=== PATIENT | female | born 1965 | race African-American/Black ===

== ENCOUNTER 2022-11-01 09:39 | Outpatient (REF) | payer OTHER, SELFPAY ==
[2022-11-01 11:17] LABS: MANUAL DIFF FLAG NO
[2022-11-01 11:39] LABS: Basophils Percent Auto 0.5 % (0-2); Eosinophils Absolute Auto 0.2 X10*3/uL (0.0-0.4); Eosinophils Percent Auto 2.4 % (0-4); Hematocrit 35.5 % (37.0-47.0); Hemoglobin 11.6 g/dl (12.0-16.0); Imm Gran Abs Auto 0.01 X10*3/uL (0.00-0.03); Imm Gran Pct Auto 0.1 % (0.0-0.4); Lymphocytes Absolute Auto 2.4 X10*3/uL (1.2-4.9); Lymphocytes Percent Auto 31.6 % (20-40); Mean Corpuscular HGB Conc 32.7 g/dl (31.0-35.0); Mean Corpuscular Hemoglobin 28.2 pg (27.0-33.0); Mean Corpuscular Volume 86.4 fL (80.0-98.0); Mean Platelet Volume 9.8 fL (9.4-12.3); Monocytes Absolute Auto 0.5 X10*3/uL (0.1-1.2); Monocytes Percent Auto 6.5 % (2-11); Neutrophils Absolute Auto 4.4 x10*3/uL (2.0-8.3); Neutrophils Percent Auto 58.9 % (45-73); Platelet Count 285 X10*3/uL (160-400); Red Blood Count 4.11 X10*6/uL (4.20-5.50); Red Cell Distribution Width 13.1 % (11.0-16.0); White Blood Count 7.4 X10*3/uL (4.8-10.8)
[2022-11-01 12:31] LABS: Alanine Aminotransferase 24 U/L (0-31); Albumin Level 3.8 g/dL (3.5-5.0); Alkaline Phosphatase 54 U/L (39-117); Anion Gap 13 (12-20); Aspartate Amino Transferase 16 U/L (5-31); Bilirubin Total 0.3 mg/dL (0.0-1.0); Blood Urea Nitrogen 15 mg/dL (9-16); Calcium 9.6 mg/dL (8.4-10.2); Carbon Dioxide 26 mmol/L (22-29); Chloride 104 mmol/L (96-108); Cholesterol 119 mg/dL (<200); Estimated Glomerular Filt Rate 58; Glucose Random 113 mg/dL (60-115); HDL Cholesterol 30 mg/dL (>40); LDL Cholesterol Calculated 67 mg/dL (<100); Potassium 4.3 mmol/L (3.3-5.1); Sodium 139 mmol/L (135-145); TSH reflex Free T4 1.61 uIU/mL (0.32-4.0); Total Protein 7.8 g/dL (6.5-8.0); Triglycerides 114 mg/dL (<150)
[2022-11-01 13:09] LABS: Creatinine Urine 146.63 mg/dL; Microalbumin Urine < 5.0 mg/L
[2022-11-02 04:20] LABS: ~HepC Num1 0.05 S/CO (0.00-0.79); ~Hepatitis C Antibody Nonreactive (Nonreactive)
[2022-11-02 14:04] LABS: HIV RNA PCR Qn Copies NOT DETECTED copies/mL (NOT DETECTED); HIV RNA PCR Qn Log Copies NOT DETECTED (NOT DETECTED)
== END 2022-11-01 09:40 | disposition home or self-care (01) ==
LOC: HO.HHCL 09:39
PROVIDERS: Visit Provider Registered Nurse
DX: Z00.00 Encounter for general adult medical examination without abnormal findings (principal); Z11.4 Encounter for screening for human immunodeficiency virus [HIV]; E78.00 Pure hypercholesterolemia, unspecified; E55.9 Vitamin D deficiency, unspecified; E11.9 Type 2 diabetes mellitus without complications
CPT/HCPCS: 36415; 80053; 80061; 82043; 82306; 84443; 85025; 86803; 87536

== ENCOUNTER 2023-01-17 15:46 | Outpatient (REF) | payer OTHER, SELFPAY ==
[2023-01-17 17:29] LABS: MANUAL DIFF FLAG NO
[2023-01-17 17:42] LABS: Basophils Percent Auto 0.4 % (0-2); Eosinophils Absolute Auto 0.2 X10*3/uL (0.0-0.4); Eosinophils Percent Auto 1.7 % (0-4); Hematocrit 39.6 % (42.0-52.0); Hemoglobin 12.7 g/dl (14.0-18.0); Imm Gran Abs Auto 0.02 X10*3/uL (0.00-0.03); Imm Gran Pct Auto 0.2 % (0.0-0.4); Immature Retic Fraction 7.5 % (2.3-13.4); Lymphocytes Absolute Auto 3.4 X10*3/uL (1.2-4.9); Lymphocytes Percent Auto 37.6 % (20-40); Mean Corpuscular HGB Conc 32.1 g/dl (31.0-36.0); Mean Corpuscular Hemoglobin 28.1 pg (27.0-33.0); Mean Corpuscular Volume 87.6 fL (80.0-98.0); Monocytes Absolute Auto 0.7 X10*3/uL (0.1-1.2); Monocytes Percent Auto 7.5 % (2-11); Neutrophils Absolute Auto 4.8 x10*3/uL (2.0-8.3); Neutrophils Percent Auto 52.6 % (45-73); Platelet Count 300 X10*3/uL (160-400); Red Blood Count 4.52 X10*6/uL (4.60-5.80); Red Cell Distribution Width 13.2 % (11.0-16.0); Retic HGB Equivalent 33.6 pg (30.0-35.0); Reticulocyte Percent 1.1 % (0.5-1.8); Reticulocytes Absolute 0.048 X10*6/uL (0.026-0.095); White Blood Count 9.2 X10*3/uL (4.8-10.8)
[2023-01-17 17:55] LABS: Iron 62 mcg/dL (45-160); Percent Iron Saturation 20 % (15-50); Total Iron Binding Capacity 316 mcg/dL (228-428); Unsaturated Iron Binding 254 ug/dL
[2023-01-17 18:08] LABS: Ferritin 54 ng/mL (20-250)
[2023-01-17 18:23] LABS: Folate 8.5 ng/mL (> or = 4.0); Vitamin B12 252 pg/mL (200-900)
== END 2023-01-17 15:47 | disposition home or self-care (01) ==
LOC: HO.HHCL 15:46
PROVIDERS: Visit Provider Family Medicine
DX: D64.9 Anemia, unspecified (principal)
CPT/HCPCS: 36415; 82607; 82728; 82746; 83540; 85025; 85045

== ENCOUNTER 2023-05-23 12:37 | Outpatient (AMB) | payer OTHER, SELFPAY ==
--- NOTE | 2023-05-23 13:03 | A.OFFVIS_ITS ---
Intake Vital Signs 05/23/23 13:13 Height 5 ft 7 in Weight 233 lb 4 oz BMI 36.5 BP 134/80 Blood Pressure Location Lt brachial Position Sitting Pulse 83 Pulse Source Pulse Oximeter Pulse Oximetry (%) 93 Oxygen Delivery Method Room Air Intake Visit Reasons: ENP- Sleep Disturbance/ Dist of sleep-wake - LVM Intake Note: Patient presents for sleep disturbance. Snoring and doesn't sleep good. Allergies No Known Allergies Allergy (Verified 05/23/23 13:08) HPI HPI Comments History of Present Illness Details 58 y/o male patient with HTN, HLD and T2 DM, presents for new in-person visit for sleep consultation. Pt reports loud snoring, and non refreshing sleep. He works overnight shift, from 11 pm to 9 am for three days a week. His sleep schedule is also very irregular, can't sleep consistently during daytime, or night time. Sleep questionnaire: Have you ever been diagnosed with a sleep disorder? No. Have you ever had a sleep study in the past? No. Have you ever been treated for a sleep disorder? No. Do you take medications for a sleep disorder? No. Do you snore? Yes. Do you wake up gasping at night? No. Do you have episodes of apneas? No. If yes, are they witnessed? No. Do you have episodes of nocturnal chest pain or dyspnea? No. Do you have difficulty initiating sleep? No. Do you have difficulty maintaining sleep? Yes. Do you wake up tired? Yes. Do you have headaches upon awakening? No. Do you wake up with dry mouth or throat? No. Do you have GERD? Yes, occasionally. Do you have nocturia? No. Do you have nocturnal leg cramps? Yes. Do you have symptoms of restless legs? No. Do you act out your dreams? No. Sleep hygiene questionnaire: What is your usual sleep routine? Usual bedtime is at 12 pm or 11 pm ; Usual wake up time is at 5 pm, 7 am. Do you take naps? Yes. Is your sleep environment cool, dark, and quiet? Yes. Do you exercise? No. Do you take caffeine or other stimulants? Coffee or tea in the morning. Do you use electronics in bed? Yes, watches TV. What is your work schedule? 11 pm to 9 am. Hypersomnolence questionnaire: Do you have daytime tiredness or fatigue? Yes. Do you easily fall asleep when inactive? Yes. Have you ever had episodes of sudden weakness? No. Have you ever had episodes of sudden weakness associated with strong emotions? No. PFSH Family History Father Stroke Mother Hypertension Social History (Updated 05/23/23 @ 13:13 by Tova Meade CMA) Household Members: Spouse Housing: Apartment Alcohol intake: former Patient Tobacco Use Status: Never used Tobacco Review of Systems Const All systems reviewed & are unremarkable except as noted in HPI and below Physical Exam Vital Signs: Last Vital Signs Pulse 83 05/23/23 13:13 BP 134/80 05/23/23 13:13 Pulse Ox 93 05/23/23 13:13 Oxygen Delivery Method Room Air 05/23/23 13:13 BMI result Body Mass Index 36.5 Const General: cooperative and tired appearing Nutritional Appearance: obese Orientation/consciousness: patient oriented x3 Neck Neck: Yes full ROM and Yes supple Resp Effort & Inspection: normal respiratory effort and able to speak in complete sentences Neuro General: patient oriented x3 and gait normal Cranial nerves: Yes CN's II-XII intact bilaterally Cognition (Neuro): normal cognition Gait exam (Neuro): Normal gait present Motor exam (neuro): 5/5 motor strength present throughout Psych Appearance: grossly normal Mental Status: mental status grossly normal Speech and movement: Normal speech and movement present Affect: normal affect Attitude: cooperative Assessment & Plan Assessment & Plan (1) Snoring: Code(s): R06.83 - Snoring (2) Daytime sleepiness: Code(s): R40.0 - Somnolence (3) 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 Will f/u with pt after study to discuss results and appropriate treatment options. Sleep hygiene education provided. Advised patient to try melatonin 3 mg with magnesium 400 mg qHS. Pt to call with any worsening concerns or questions. Orders: Orders RT home sleep study Today G47.26 - Circadian rhythm sleep disorder, shift work type, R06.83 - Snoring, R40.0 - Somnolence Medications: New magnesium oxide 400 mg PO DAILY 30 days 30 tabs 3RF melatonin 3 mg PO BEDTIME 30 days PRN 30 tabs 4RF sleep Coding Level of Care Code New Pt Level 3 (80262) Diagnoses Snoring R06.83 Daytime sleepiness R40.0 Shift work sleep disorder G47.26
[2023-05-23 13:13] VITALS: BP 134/80; PULSE 83; O2SAT 93; BMI 36.5
== END 2023-05-23 13:35 | disposition home or self-care (01) ==
PROVIDERS: PCP Family Medicine; Visit Provider Nurse Practitioner Family
DX: R06.83 Snoring (principal); R40.0 Somnolence; G47.26 Circadian rhythm sleep disorder, shift work type
CPT/HCPCS: 99203

== ENCOUNTER → 2023-05-23 12:37 | Outpatient (BNVA) | payer OTHER, SELFPAY | PROVIDERS: PCP Family Medicine; Visit Provider Nurse Practitioner Family ==

== ENCOUNTER → 2023-06-30 10:43 | Outpatient (REF) | payer OTHER, SELFPAY | LOC: HO.SL 10:43 | PROVIDERS: PCP Family Medicine; Visit Provider Nurse Practitioner Family | DX: R06.83 Snoring (principal); R40.0 Somnolence; G47.26 Circadian rhythm sleep disorder, shift work type; G47.33 Obstructive sleep apnea (adult) (pediatric) | CPT/HCPCS: 95806 ==

== ENCOUNTER → 2023-06-30 10:53 | Outpatient (BNV) | payer OTHER, SELFPAY | PROVIDERS: PCP Family Medicine; Visit Provider Psychiatry & Neurology Neurology | DX: G47.33 Obstructive sleep apnea (adult) (pediatric) (principal) | CPT/HCPCS: 95806 ==

== ENCOUNTER → 2024-04-12 09:38 | Outpatient (BNVA) | payer OTHER, SELFPAY | PROVIDERS: PCP Family Medicine; Visit Provider Psychiatry & Neurology Neurology ==

== ENCOUNTER 2024-06-18 14:48 | Outpatient (AMB) | payer OTHER, SELFPAY ==
[2024-06-18 15:09] VITALS: BP 104/72; PULSE 75; O2SAT 98; BMI 36.5
--- NOTE | 2024-06-18 15:09 | A.OFFVIS_ITS ---
Vital Signs 06/18/24 15:09 Height 5 ft 7 in Weight 233 lb 4 oz BMI 36.5 BP 104/72 Blood Pressure Location Lt brachial Position Sitting Pulse 75 Pulse Source Pulse Oximeter Pulse Oximetry (%) 98 Oxygen Delivery Method Room Air Intake Visit Reasons: Follow Up [facility] Intake Note: patient following up [facility]. Compliance in chart Allergies No Known Allergies Allergy (Verified 06/18/24 15:13) HPI Comments Details: 59 y/o male comes for follow up of Sleep Apnea. THe HST was completed 06/2023 and AHI was 7/hr with O2 shravan 84%. He works nights 4x per week from 11pm to 11am, comes home and has a difficult time sleeping usually falls asleep at 4pm and wakes up at 10pm. He is no longer snoring. He has not been using CPAP regularly, as he was traveling to [facility] due to the of a family members and did not take his machine with him. When he returned from [facility] on Mar 26 he started using the CPAP again and he says sometimes the machine times out and turns off. His BP has improved on 4 blood pressure medications. He denies morning headaches. He denies RLS, however the legs have improved with magnesium 400mg PO daily at bedtime, he still has some numbness but no tingling. Muscle cramps and spasms are still happening however 1 x per week. His mood is stable, and he wants to lose weight. 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 He washes his mask, changes the filters and asks for supplies as needed. [facility] Medical History Obstructive sleep apnea hypopnea, mild Family History Father Stroke Mother Hypertension Social History Household Members: Spouse Housing: Apartment Alcohol intake: former Patient Tobacco Use Status: Never used Tobacco Physical Exam Vital Signs: Last Vital Signs Pulse 75 06/18/24 15:09 BP 104/72 06/18/24 15:09 Pulse Ox 98 06/18/24 15:09 Oxygen Delivery Method Room Air 06/18/24 15:09 BMI result Body Mass Index 36.5 Const Orientation/consciousness: patient oriented x3 Eyes Pupils: Equal, round and reactive pupils present Neuro General: patient oriented x3 and moves all extremities Cranial nerves: Yes Facial sensation intact/muscles of mastication intact, Yes Equal, round and reactive pupils present, Yes Normal accommodation reflex present, Yes Bilaterally intact EOM present, Yes Nystagmus not present, Yes Normal facial strength present and Yes Other cranial nerve findings present (pinguecula L. eye medial) Motor exam (neuro): 5/5 motor strength present throughout and Normal motor muscle tone present throughout Results Reviewed Results Reviewed: [facility] Compliance Data Mar 2024 - June 2024 Average total use is 49/90 days and average hours used is 3 hours and 45 min. CPAP pressures are 5-66etO83, with median pressures of 6cmH20, AHI is 1.1 Labs from 2022? 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 Use has improved however still not optimal therapy due to travel. Fatigue Labs to r/o deficiencies. F/u in 6months for compliance. Orders: Orders Complete Blood Count no Diff Today R25.2 - Cramp and spasm, R53.83 - Other fatigue Methylmalonic Acid Today G47.9 - Sleep disorder, unspecified, R53.83 - Other fatigue TSH reflex Free T4 Today R25.2 - Cramp and spasm, R53.83 - Other fatigue Vitamin D 25-OH Total Today R25.2 - Cramp and spasm, R53.83 - Other fatigue Homocysteine Today G47.9 - Sleep disorder, unspecified, R53.83 - Other fatigue Comprehensive Met. Panel Today R53.83 - Other fatigue Hemoglobin A1c Today R53.83 - Other fatigue Ferritin Today R25.2 - Cramp and spasm, R53.83 - Other fatigue Vitamin B12 and Folate Today R25.2 - Cramp and spasm, R53.83 - Other fatigue Patient Instructions: Sleep Hygiene education provided. Wash mask daily, change filters, fill reservoir. BMI is 36.5 Encouraged patient to engage in daily exercise for weight reduction. Molder Machine Tender/Health Worker referral if interested in dietary caloric intake and meal planning. DASH Diet for Hypertension, per [place] [employer] #1 modifiable risk factor to prevent heart attacks is blood pressure control. Refer to: www.https//Mimvi.diet Mediterranean Diet- Cardiovascular Risk reduction, weight loss, and control Type 2 diabetes mellitus. Blood Glucose Monitoring, A1C control for prevention of diabetes, nephropathy, neuropathy, retinopathy. Coding Level of Care Code Est Pt Level 4 (90206) Diagnoses Muscle cramps at night R25.2 Obstructive sleep apnea hypopnea, mild G47.33 Daytime sleepiness R40.0 Shift work sleep disorder G47.26 Chronic fatigue R53.82 Fatigue type: chronic, unspecified Time Spent (min) 30
--- OUTSIDE RECORDS SUMMARY | 2024-06-18 17:20 | XMS_ITS | Encounter Summary ---
Author Organization [employer] Address [address] [place] [address] Care Team Providers Care Clinical Microbiologist Name Role Phone Lizeth Weinstein MD Primary Care Provider [phone] Reason for Visit * Reason Comments Med Refill Encounter Details Date Type Department Care Team ([facility] st Contact Info) Description 02/19/2023 Refill [facility] MED[facility]INE [address] [place] [address] Berry Escalante AGNP Social History Tobacco Use Types Packs/Day Years Used Date Smoking Tobacco: Never Smokeless Tobacco: Never Alcohol Use Standard Drinks/Week Comments Never 0 (1 standard drink = 0.6 oz pur e alcohol) Depression Answer Date Recorded Patient Health Questionnaire-9 Score 0 10/08/2022 Housing Stability Answer Date Recorded What is your housing situation today? I have dyana cuellar 01/03/[address] you li ve. Do you have problems with any of the following? None of the above 01/03/2023 Food Insecurity Answer Date Recorded Within the past 12 months, y ou worried that your food would run out before you got money to buy more: Never True 01/03/2023 Within the past 12 months,th e food you bought just didn't last and you didn't have enough money to get more: Never True Transportation Answer Date Recorded In the past 12 months, has l ack of transportation kept you from medical appts, meetings, work or from getting things needed for daily living? No 01/03/2023 Utilities Answer Date Recorded In the past 12 months, has t he electric, gas, oil or water company threatened to shut off services in your home? No 01/03/2023 Depression Answer Date Recorded Patient Health Questionnaire-2 Score 0 10/08/2022 Sex and Gender Information Value Date Recorded Sex Assigned at Male 01/04/2022 10:32 AM EDT Legal Sex Male 10:32 AM EDT Gender Identity Male 01/04/2022 10:32 AM EDT Sexual Orientation Straight 01/04/2022 10 :32 AM EDT documented as of this encounter Plan of Treatment Not on file documented as of this encounter Visit Diagnoses Not on filedocumented in this encounter Additional Health Concerns Assessment Noted Time PHQ-9 Depression Total Score: 0 10/09/19 1:18 PM EDT documented as of this encounter Care Teams Clinical Microbiologist Relationship Specialty Start Date End Date Lizeth Weinstein MD [address] [place] [address] PCP - General Family Medicine 11/25/22 documented as of this encounter
--- OUTSIDE RECORDS SUMMARY | 2024-06-18 17:20 | XMS_ITS | Encounter Summary ---
Author Organization [employer] Address [address] [place] [address] Care Team Providers Care Workforce Advisor Name Role Phone Aleja Segura Primary Care Provider [phone] Berry Escalante Primary Care Provider Unavail able Lizeth Weinstein MD Primary Care Provider [phone] Encounter Details Date Type Department Care Team (Latest Contact Info) Description 03/05/2019 Abstract [facility] CONVERSIONS Dental, Provider, DDS Social History Tobacco Use Types Packs/Day Years Used Date Smoking Tobacco: Never Assessed Sex and Gender Information Value Date Recorded Sex Assigned at Male 01/04/2022 10:32 AM EDT Legal Sex Male 10:32 AM EDT Gender Identity Male 01/04/2022 10:32 AM EDT Sexual Orientation Straight 01/04/2022 10 :32 AM EDT documented as of this encounter Plan of Treatment Not on file documented as of this encounter Visit Diagnoses Not on filedocumented in this encounter Care Teams Workforce Advisor Relationship Specialty Start Date End Date Aleja Segura FNP PCP - General Family Medicine 11/02/21 07/28/22 Berry Escalante AGNP PCP - General Family Medicine 07/29/22 11/24/22 Lizeth Weinstein MD [address] [place] [id number] PCP - General Family Medicine 11/25/22 documented as of this encounter
--- OUTSIDE RECORDS SUMMARY | 2024-06-18 17:20 | XMS_ITS | Encounter Summary ---
Author Organization [employer] Address [address] [place] [address] Care Team Providers Care Field Engineer Name Role Phone Lizeth Weinstein MD Primary Care Provider [phone] Reason for Visit * Reason Onset Date Comments Referral 02/16/2023 Encounter Details Date Type Department Care Team ([facility] st Contact Info) Description 02/16/2023 Telephone [facility] MEDICINE [address] [place], [place] [phone] Lizeth Weinstein MD [address] [place], [place] [phone] Referral Social History Tobacco Use Types Packs/Day Years Used Date Smoking Tobacco: Never Smokeless Tobacco: Never Alcohol Use Standard Drinks/Week Comments Never 0 (1 standard drink = 0.6 oz pur e alcohol) Depression Answer Date Recorded Patient Health Questionnaire-9 Score 0 10/08/2022 Housing Stability Answer Date Recorded What is your housing situation today? I have dyanakaren cuellar 01/03/[address] you [...] AM EDT documented as of this encounter Miscellaneous Notes * Telephone Encounter - May Fenton RN - 02/17/2023 10:19 AM EST Telephone call to [place]. She stated that they need a referral as the secondary insurance ([facility]) is requesting it. Insurance has been verified for patient and both are correct. [place] stated that since secondary insurance is picking up the cost they requested an additional referral. * Telephone Encounter - Vanessa Ramirez - 02/16/2023 12:21 PM EST Tc from [facility] with [facility] requesting a secondary referral that was faxed over on 02/14/2023 with the patients correct insurance request. Please contact [place] @ [phone] ext [phone] documented in this encounter Plan of Treatment Not on file documented as of this encounter Visit Diagnoses Not on filedocumented in this encounter Additional Health Concerns Assessment Noted Time PHQ-9 Depression Total Score: 0 10/09/19 23 1:18 PM EDT documented as of this encounter Care Teams Field Engineer Relationship Specialty Start Date End Date Lizeth Weinstein MD [address] [place] [id number] PCP - General Family Medicine 11/25/22 documented as of this encounter
--- OUTSIDE RECORDS SUMMARY | 2024-06-18 17:20 | XMS_ITS | Clinical Summary ---
Author Organization [facility] Address [address] [place] [address] Phone Care Team Providers Care Durability Engineer Name Role Phone Bertha Nicholson BELTING AND WEBBING INSPECTOR-Emeli Primary Care Provider Unavailable Allergies Active Allergy Reactions Criticality Noted Date Comments Chloroquine Hives 12/30/2005 Medications atorvastatin (LIPITOR) 40 MG tablet Take 40 mg by mouth 1 (one) time each day Active aspirin (ST ARISTIDES) 81 MG EC tablet Take 81 mg by mouth 1 (one) time each day Active losartan-hydroC HLOROthiazide (HYZAAR) 100-25 MG per tablet Take 1 tablet by mouth 1 (one) time each day Active amLODIPine (NORVASC) 10 MG tablet Take 10 mg by mouth 1 (one) time each day Active cholecalciferol (VITAMIN D-3 SUPER STRENGTH) 50 MCG (2000 UT) tablet Take 2,000 Units by mouth 1 (one) time each day Active metFORMIN XR (GLUCOPHAGE-XR) 500 MG 24 hr tablet Take 500 mg by mouth in the morning and 500 mg in the evening. Take with meals. 03/16/2021 Active metoprolol tartrate (LOPRESSOR) 50 MG tablet Take 50 mg by mouth in the morning and 50 mg in the evening. Active spironolactone (ALDACTONE) 25 MG tablet Take 1 tablet (25 mg total) by mouth 1 (one) time each day 90 tablet 2 04/19/2023 Active Active Problems Problem Noted Date Diagnosed Date Essential (primary) hypertension 12/23/2020 Alcohol abuse 07/08/2016 Overview (05/03/2022): Admitted with alcohol withdrawal and alcoholic hepatitis to [facility] 06/2016 Malaria 01/12/2016 Overview (05/03/2022): Diagnosed in [place] 03/2015 Biliary calculus 04/02/2013 Non-alcoholic fatty liver 04/02/2013 Hypertriglyceridemia 07/02/2008 Impaired fasting glycemia 06/14/2007 Overview (05/03/2022): June 2007 Goiter 12/28/2004 Overview (05/03/2022): O update Nonspecific reaction to tube rculin skin test without active tuberculosis 12/28/2004 Overview (05/03/2022): [facility] update Immunizations Immunization Administration Dates Next Due Influenza, Unspecified 01/12/2016,02/23/2013, Td 03/06/1999 Tdap 07/02/2008 Social History Tobacco Use Types Packs/Day Years Used Date Smoking Tobacco: Never Assessed Alcohol Use Standard Drinks/Week Comments Never 0 (1 standard drink = 0.6 oz pur e alcohol) Sex and Gender Information Value Date Recorded Sex Assigned at Not on file Legal Sex Male 10:43 AM EDT Gender Identity Not on file Sexual Orientation Not on file Last Filed Vital Signs Vital Sign Reading Time Taken Comments Blood Pressure 110/60 05/03/2022 3:08 PM EST Pulse 78 05/03/2022 3:08 PM EST Temperature - - Respiratory Rate - - Oxygen Saturation 97% 05/03/2022 3:08 PM EST Inhaled Oxygen Concentration - - Weight 103 kg (227 lb) 05/03/2022 3:08 PM EST Height - - Body Mass Index - - Plan of Treatment Health Maintenance Due Date Last Done Comments Pneumococcal Vaccine: 50+ Years (1 of 2 - PCV) 05/13/1982 Colorectal Cancer Screening: Annual FOBT 05/13/2012 Colorectal Cancer Screening: Colonoscopy 05/13/2012 Colorectal Cancer Screening: Sigmoidoscopy 05/13/2012 Influenza Vaccine (Season Ended) 2024 01/12/2016, 02/23/2013, 01/20/2008 Hepatitis B Vaccine Aged Out No longe r eligible based on patient's age to complete this topic Insurance [facility] Care Teams Durability Engineer Relationship Specialty Start Date End Date Bertha Nicholson FNP-C PCP - General Nurse Practitioner 09/25/20
--- OUTSIDE RECORDS SUMMARY | 2024-06-18 17:20 | XMS_ITS | Encounter Summary ---
Author Organization [facility] [address] [place] [address] Phone Care Team Providers Care Plate Stacker Name Role Phone Bertha Nicholson Primary Care Provider Unavailable Reason for Visit * Reason Comments Med Refill Encounter Details Date Type Department Care Team (Late st Contact Info) Description 02/19/2023 [facility]ill [facility] [address] [facility] [place] [phone] Adi Garrido MD [address] [place] [address] Social History Tobacco Use Types Packs/Day Years Used Date Smoking Tobacco: Never Assessed Alcohol Use Standard Drinks/Week Comments Never 0 (1 standard drink = 0.6 oz pur e alcohol) Sex and Gender Information Value Date Recorded Sex Assigned at Not on file Legal Sex Male 10:43 AM EDT Gender Identity Not on file Sexual Orientation Not on file documented as of this encounter Plan of Treatment Not on file documented as of this encounter Visit Diagnoses Not on filedocumented in this encounter Care Teams Plate Stacker Relationship Specialty Start Date End Date Bertha Nicholson FNP-C PCP - General Nurse Practitioner 09/25/20 documented as of this encounter
--- OUTSIDE RECORDS SUMMARY | 2024-06-18 17:20 | XMS_ITS | Encounter Summary ---
Author Organization [employer] Address [address] [place] [address] Care Team Providers Care Girl Friday Name Role Phone Lizeth Weinstein MD Primary Care Provider [phone] Encounter Details Date Type Department Care Team (Late st Contact Info) Description 12/12/2023 Orders Only [facility] MEDICINE [address] [place] [address] Lizeth Weinstein MD [address] [place] [address] Social History Tobacco Use Types Packs/Day Years Used Date Smoking Tobacco: Never Smokeless Tobacco: Never Alcohol Use Standard Drinks/Week Comments Never 0 (1 standard drink = 0.6 oz pur e alcohol) Alcohol Answer Date Recorded Frequency of Alcohol Consumption Not on file 05/31/2023 Average Number of Drinks Not on file 024 Frequency of Binge Drinking Not on file 05/06 Score 0 05/31/2023 Depression Answer Date Recorded Patient Health Questionnaire-9 Score 0 05/31/2023 Patient Health Questionnaire-9 Score 0 05/31/2023 Last PHQ-9: Questionnaire Data Not on file 0 05/31/2023 Housing Stability Answer Date Recorded What is [...] Date Recorded Patient Health Questionnaire-2 Score 0 05/31/2023 Sex and Gender Information Value Date Recorded [...] Noted Time PHQ-9 Depression Total Score: 0 05/31/19 24 1:28 PM EDT documented as of this encounter Care Teams Girl Friday Relationship Specialty Start Date End Date Lizeth Weinstein MD [address] [place] [address] PCP - General Family Medicine 11/25/22 documented as of this encounter
--- OUTSIDE RECORDS SUMMARY | 2024-06-18 17:20 | XMS_ITS | Encounter Summary ---
Author Organization [employer] Address [address] [place] [address] Care Team Providers Care Agricultural Equipment Sales Engineer Name Role Phone Lizeth Weinstein MD Primary Care Provider [phone] Encounter Details Date Type Department Care Team (Late st Contact Info) Description 02/17/2023 Orders Only [facility] MEDICINE [address] [place] [address] Lizeth Weinstein MD [address] [place] [address] Type 2 diabetes mellitus without complication, without long-term current use of insulin ([facility]) (Primary Dx); Cataract, unspecified cataract type, unspecified laterality; Posterior vitreous detachment of both eyes Social History Tobacco Use Types Packs/Day Years Used Date Smoking Tobacco: Never Smokeless Tobacco: Never Alcohol Use Standard Drinks/Week Comments Never 0 (1 standard drink = 0.6 oz pur e alcohol) Depression Answer Date Recorded Patient Health Questionnaire-9 Score 0 10/08/2022 Housing Stability Answer Date Recorded What is your housing situation today? I have dyana polo 01/03/[address] you li [...] documented as of this encounter Visit Diagnoses Diagnosis Type 2 diabetes mellitus without complication, without long-term current use of insulin ([facility])- Primary Cataract, unspecified cataract type, unspecified laterality Posterior vitreous detachment of both eyes Vitreous degeneration documented in this encounter Additional Health Concerns Assessment Noted Time PHQ-9 Depression Total Score: 0 10/09/19 1:18 PM EDT documented as of this encounter Care Teams Agricultural Equipment Sales Engineer Relationship Specialty Start Date End Date Lizeth Weinstein MD [address] [place] [address] PCP - General Family Medicine 11/25/22 documented as of this encounter
--- OUTSIDE RECORDS SUMMARY | 2024-06-18 17:20 | XMS_ITS | Encounter Summary ---
Author Organization [employer] Address [address] [place] [address] Care Team Providers Care Shirt Creaser Name Role Phone Lizeth Weinstein MD Primary Care Provider [phone] Reason for Visit * Reason Onset Date Comments Appointment Request 06/06/2024 Encounter Details Date Type Department Care Team ([facility] st Contact Info) Description 06/06/2024 Telephone [facility] MEDICINE [address] [place] [address] Lizeth Weinstein MD [address] [place] [address] Appointment Request Social History Tobacco Use Types Packs/Day Years [...] encounter Miscellaneous Notes * Telephone Encounter - Imer Byrd - 06/06/2024 4:50 PM EDT TC from pt wanting to schedule follow up with pcp dr Weinstein RV HTN and DM . No availability with [facility] at this time . Mid may blocked. Pt aware will be placed on recall documented in this encounter Plan of Treatment Not on file documented as of this encounter Visit Diagnoses Not on filedocumented in this encounter Additional Health Concerns Assessment Noted Time PHQ-9 Depression Total Score: 0 05/31/19 24 1:28 PM EDT documented as of this encounter Care Teams Shirt Creaser Relationship Specialty Start Date End Date Lizeth Weinstein MD [address] [place] [address] PCP - General Family Medicine 11/25/22 documented as of this encounter
--- OUTSIDE RECORDS SUMMARY | 2024-06-18 17:20 | XMS_ITS | Encounter Summary ---
Author Organization [employer] Address [address] [place] [address] Care Team Providers Care Glove Brusher Name Role Phone Lizeth Weinstein MD Primary Care Provider [phone] Encounter Details Date Type Department Care Team (Late st Contact Info) Description 12/14/2023 Orders Only [facility] MEDICINE [address] [place] [address] Lizeth Weinstein MD [address] [place] [address] Social History Tobacco Use Types Packs/Day Years [...] documented as of this encounter Care Teams Glove Brusher Relationship Specialty Start Date End Date Lizeth Weinstein MD [address] [place] [address] PCP - General Family Medicine 11/25/22 documented as of this encounter
--- OUTSIDE RECORDS SUMMARY | 2024-06-18 17:20 | XMS_ITS | Encounter Summary ---
Author Organization [employer] Address [address] [place] [address] Care Team Providers Care Technical Sales Representatives Name Role Phone Lizeth Weinstein MD Primary Care Provider [phone] Encounter Details Date Type Department Care Team ([facility] st Contact Info) Description 02/21/2024 Orders Only [facility] [address] [place] [address] Provider, MD Ortiz Social History Tobacco Use Types Packs/Day Years [...] on file documented as of this encounter Procedures Procedure Name Priority Date/Time Associated Diagnosis Comments DIABETES EYE EXAM Routine 02/20/2024 12:32 PM EST documented in this encounter Results * Diabetes Eye Exam (02/20/2024 12:32 PM EST) us Historical Provider HEALTH MAINTENANCE Final Result documented in this encounter Visit Diagnoses Not on filedocumented in this encounter Additional Health Concerns Assessment Noted Time PHQ-9 Depression Total Score: 0 05/31/19 24 1:28 PM EDT documented as of this encounter Care Teams Technical Sales Representatives Relationship Specialty Start Date End Date Lizeth Weinstein MD [address] [place] [phone] PCP - General Family Medicine 11/25/22 documented as of this encounter
--- OUTSIDE RECORDS SUMMARY | 2024-06-18 17:20 | XMS_ITS | Encounter Summary ---
Author Organization [employer] Address [address] [place] [address] Care Team Providers Care Help Desk Associate Name Role Phone Berry Escalante Primary Care Provider Unavail Lizeth Maloney MD Primary Care Provider [phone] Encounter Details Date Type Department Care Team ([facility] st Contact Info) Description 09/01/2022 Orders Only [facility]S [address] [place] [address] Marnie Gonzalez LPN Social History Tobacco Use Types Packs/Day Years [...] Procedure Name Priority Date/Time Associated Diagnosis Comments HEPATITIS C ANTIBODY REFLEX Routine 11/01/2022 9:45 AM EDT ALBUMIN, RANDOM URINE W/CREATININE Routine 11/01/2022 9:45 AM EDT HIV 1 RNA, QUANTITATIVE REAL TIME PCR Routine 11/01/2022 9:45 AM EDT documented in this encounter Results * HIV-1 RNA, Quantitative, Real-Time PCR (11/01/2022 9:45 AM EDT) Pathologist [facility] HIV RNA PCR Qn Copies NOT DETECTED NOT DETECTED copies/mL [facility] HIV RNA PCR Qn Log Copies NOT DETECTED NOT DETECTED [facility] Comment:Result Units: Log co pies/mLThis test was performed using Real-Time Polymerase ChainReaction.Reportable Range: 20 copies/mL to 10,000,000 copies/mL(1.30 log copies/mL to 7.00 log copies/mL).THIS TEST WAS PERFORMED AT:[email or web address] [place] [id number] MEEHAN MD 11/01/2022 9:45 AM EDT 11/01/2022 11:09 AM EDT [facility] LAB BLOOD ORDERABLES Final Res ult Performing Organization Address [facility] de Phone Number [facility] [address] [place] [phone] * Hepatitis C Antibody Reflex (11/01/2022 9:45 AM EDT) Pathologist [facility] Hepatitis C Antibody Nonreactive Nonreactive [facility] Comment:Antibodies to HCV no t detected; does not exclude early acuteHCV infection. 11/01/2022 9:45 AM EDT 11/01/2022 11:08 AM EDT [facility] LAB BLOOD ORDERABLES Final Res ult Performing Organization Address [facility] Co de Phone Number [facility] [address] [place] [phone] * Albumin, Random Urine W/Creatinine (11/01/2022 9:45 AM EDT) Pathologist [facility] Creatinine, Urine 146.63 mg/dL [facility] Microalbumin Urine <5.0 mg/L [facility] Microalbum Creatinine Ratio Ur TNP <30 ug/mg cr [facility] Comment:Unable to calculate albumin/creatinine ratio due to lowmicroalbumin or creatinine result. 11/01/2022 9:45 AM EDT 11/01/2022 11:19 AM EDT us [facility] URINE ORDERABLES Final Res ult [facility] [address] [place] [phone] [phone] documented in this encounter Visit Diagnoses Not on filedocumented in this encounter Care Teams Help Desk Associate Relationship Specialty Start Date End Date Berry Escalante AGNP PCP - General Family Medicine 07/29/22 11/24/22 Lizeth Weinstein MD [address] [place] [phone] PCP - General Family Medicine 11/25/22 documented as of this encounter
--- OUTSIDE RECORDS SUMMARY | 2024-06-18 17:21 | XMS_ITS | Clinical Summary ---
Author Organization [employer] Address [address] [place] [address] Care Team Providers Care Dust Puller Name Role Phone Lizeth Weinstein MD Primary Care Provider [phone] Allergies Active Allergy Reactions Criticality Noted Date Comments Chloroquine Itching Low 10/08/2022 Medications sildenafil (Viagra) 50 MG tablet take 1 tablet by oral route every day as needed approximately 1 hour before sexual activity 10 tablet 1 3 Active glucose blood (FREESTYLE LITE) test strip at bed time. 1 Active cholecalcifero l (Vitamin D-3) 50 MCG (1999) tabletIndicati ons:Vitamin D deficiency Take 2,000 Units by mouth in the morning. 90 tablet 11 3 Active amLODIPine (Norvasc) 10 MG tablet Take 1 tablet (10 mg) by mouth in the morning. 90 tablet 3 4 Active metoprolol succinate XL (Toprol-XL) 50 MG 24 hr tablet TAKE 1 TABLET(50 MG) BY MOUTH IN THE MORNING. DO NOT CRUSH OR CHEW 90 tablet 3 4 Active losartan-hydro CHLOROthiazide (Hyzaar) 100-25 MG tablet TAKE 1 TABLET BY MOUTH EVERY MORNING 90 tablet 3 4 Active aspirin (Aspirin Low Dose) 81 MG EC tablet Take 1 tablet (81 mg) by mouth in the morning. 90 tablet 3 4 Active spironolactone (Aldactone) 25 MG tablet Take 1 tablet (25 mg) by mouth in the morning. 90 tablet 3 4 Active magnesium oxide (Mag-Ox) 400 (240 Mg) MG tablet Take 1 tablet (400 mg) by mouth Once per day. 90 tablet 3 4 Active doxycycline (Vibramycin) 100 MG capsule Take 1 tablet by mouth once daily, starting 2 days prior to the trip, while traveling, and 4 weeks after the trip. 58 capsule 4 Active metFORMIN XR (Glucophage-XR ) 500 MG 24 hr tabletIndicati ons:Type 2 diabetes mellitus without complication, without long-term current use of insulin (CMS/HCC) TAKE 2 TABLETS BY MOUTH TWICE DAILY 360 tablet 1 5 Active atorvastatin (Lipitor) 40 MG tablet TAKE 1 TABLET(40 MG) BY MOUTH AT BEDTIME 90 tablet 1 5 Active Active Problems Problem Noted Date Diagnosed Date DARA (obstructive sleep apnea) 09/20/2023 Assessment & Plan (09/20/2023 5:56 AM EDT): - evaluated by sleep medicine clinic at [facility] - sleep study in June 2023, mild DARA. AutoPAP5-20 cm H2O was recommended Muscle cramp, nocturnal 09/20/2023 Assessment & Plan (09/20/2023 5:34 PM EDT): - continue magnesium Anemia 01/17/2023 Assessment & Plan (01/21/2023 12:31 PM EST): - recheck lab, including H. pylori - refer for colonoscopy Heartburn 01/17/2023 Assessment & Plan (06/17/2023 6:15 AM EDT): - check H. Pylori stool antigen - EGD and colonoscopy in September 2023 - start omeprazole after completing H. Pylori test Assessment & Plan (01/21/2023 12:26 PM EST): - check H. Pylori stool antigen - will request EGD when he has colonoscopy - after his submits stool test, he can take omeprazole Class 2 obesity due to exces s calories with body mass index (BMI) of 35.0 to 35.9 in adult 10/08/2022 Type 2 diabetes mellitus without complication Assessment & Plan (09/20/2023 2:12 PM EDT): - Hgb A1C 6.4% on 09/20/23 - Continue working on lifestyle modifications - continue metformin XR 1000 mg bid - Continue checking glucose: - Microalbumin test: 11/01/22 UACR no microalbuminuria - Lipid profile: 11/01/22 - Diabetic eye exam: [facility] - Foot exam: Jan 2023 Assessment & Plan (06/17/2023 6:17 AM EDT): - Hgb A1C 6.2% on 05/31/23, stable - Continue working on lifestyle modifications - continue metformin XR 1000 mg bid - Continue checking glucose: - Microalbumin test: 11/01/22 UACR no microalbuminuria - Lipid profile: 11/01/22 - Diabetic eye exam: [facility] - Foot exam: Jan 2023 Assessment & Plan (01/21/2023 12:28 PM EST): - Dx - Hgb A1C 6.2% on 10/08/22 - Continue working on lifestyle modifications - continue metformin XR 1000 mg bid - Continue checking glucose: - Microalbumin test: 11/01/22 UACR no microalbuminuria - Lipid profile: 11/01/22 - Diabetic eye exam: - Foot exam: Assessment & Plan (10/08/2022 1:29 PM EDT): A1C= 6.2 Glu= 78 At home = 118 to 126 random glucose checks. Well managed. Continue current therapies. Counseled weight loss, dietary changes including watching carbs, exercise 30 min/ day, most days. ED precautions discussed. Hypercholesterolemia 02/22/2018 Assessment & Plan (09/20/2023 5:59 AM EDT): - current medication: atorvastatin 40 mg at bedtime - last lipid profile in Oct 2022; Total cholesterol 114 LDL 67, HDL 30 - continue working on lifestyle modifications Assessment & Plan (06/17/2023 6:19 AM EDT): - current medication: atorvastatin 40 mg at bedtime - last lipid profile in Oct 2022; Total cholesterol 114 LDL 67, HDL 30 - continue working on lifestyle modifications Assessment & Plan (01/17/2023 11:42 AM EST): Last lipid profile: 11/01/22 TC 119; TG 114; HDL 30; LDL 67 Current medication: Atorvastatin 40 mg qhs Assessment & Plan (10/08/2022 2:01 PM EDT): CMP = statin use. 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 Assessment & Plan (01/21/2023 12:24 PM EST): - refer to sleep medicine clinic - probable DARA given HTN on multiple antihypertensives - pt also has slab puller Essential hypertension 10/29/2016 Assessment & Plan (09/22/2023 6:11 AM EDT): -Goal BP < 140/90 per JNC-8 and < 130/80 per ACC/AHA guideline (Treatment threshold >= 130/80) -BP at goal today -Continue working on lifestyle modifications -Recommended self-monitoring BP. -Continue current medications: Amlodipine 10 mg daily; losartan - hydrochlorothiazide 100-25 mg daily; spironolactone 25 mg daily; metoprolol succinate 50 mg daily -Optimize Tx for DARA -Follow up in 3-6 mo, sooner if any problem arises Assessment & Plan (06/17/2023 6:12 AM EDT): -Goal BP < 140/90 per JNC-8 and < 130/80 per ACC/AHA guideline (Treatment threshold >= 130/80) -BP at goal today -Continue working on lifestyle modifications -Recommended self-monitoring BP. -Continue current medications: Amlodipine 10 mg daily; losartan - hydrochlorothiazide 100-25 mg daily; spironolactone 25 mg daily; metoprolol succinate 50 mg daily -Evaluate for possible DARA -Follow up in 3-6 mo, sooner if any problem arises Assessment & Plan (01/21/2023 12:25 PM EST): -Goal BP < 140/90 per JNC-8 and < 130/80 per ACC/AHA guideline (Treatment threshold >= 130/80) - BP at goal today -Continue working on lifestyle modifications -Recommended self-monitoring BP. -Continue current medications: Amlodipine 10 mg daily; losartan - hydrochlorothiazide 100-25 mg daily; spironolactone 25 mg daily; metoprolol succinate 50 mg daily -Evaluate for possible DARA -Follow up in 3-6 mo, sooner if any problem arises Assessment & Plan (10/08/2022 1:32 PM EDT): At home BP 148/78 to 121/74 Reports 148 is the highest but that is an extreem and not his usual. Usually he is around 121/74. BP seems well managed. No medication titration today. Continue current therapies. Counseled low-salt diet, advised increase in exercise to 30 min/ day most days, weight loss if applicable. Call clinic for high BP >170/90 or low <90/60. Resolved Problems Problem Noted Date Diagnosed Date Resolved Date Routine adult health maintenance 10/08/2022 01/17/2023 Assessment & Plan (10/08/2022 2:02 PM EDT): PHQ: 0 Substance use: denies nicotine products, etoh, or drug use. Lipids: lipid panel Colonoscopy: I found the pre-procedural examination for colonoscopy on 04/12/2018, but there is no actual colonoscopy results. Referral to GI Eye exam: [facility] one year ago. Dental home: before covid. Advised [facility] dental. Encounters Date Type Department Care Team Description 06/06/2024 Telephone [facility] MEDICINE [address] [place] [address] Lizeth Weinstein MD Appointment Request 05/03/2024 Refill [facility] MEDICINE [address] [place] [address] Lizeth Weinstein MD Type 2 diabetes mellitus without complication, without long-term current use of insulin ([facility]) 05/03/2024 Refill [facility] [address] [place] [address] Nica Rangel ANP from Last 3 Months Immunizations Name Administration Dates Next Due Hep A, Adult 01/17/2023 Influenza injectable quadriv alent IIV4 with preservative 12/19/2017 Influenza injectable quadriv alent preservative free 01/17/2023,12/02/2021,03/03/2021 Influenza, IIV3, injectable 01/12/2016, 3,01/20/2008 Influenza, Unspecified 01/20/2008 Influenza, injectable, quadr ivalent, preservative free, pediatric 01/12/2016,02/23/2013 Pfizer Covid-19 Vaccine 12+ 05/31/2023 Pneumococcal Conjugate PCV 20 01/17/2023 TD (adult), 2 Lf tetanus tox oid, preservative free, adsorbed 10/19/2021,03/06/1999 Tdap 07/02/2008 Zoster, Recombinant 12/02/2021 Social History Tobacco Use Types Packs/Day Years Used Date Smoking Tobacco: Never Smokeless Tobacco: Never Tobacco Cessation:Counseling Given: Not Answered Alcohol Use Standard Drinks/Week Comments Never 0 [...] your housing situation today? I have dyana sing 01/03/[address] you li [...] Orientation Straight 01/04/2022 10 :32 AM EDT Last Filed Vital Signs Vital Sign Reading Time Taken Comments Blood Pressure 112/65 09/20/2023 1:48 PM EDT Pulse 91 09/20/2023 1:48 PM EDT Temperature 36.7 ??C (98 ??F) 05/31/2023 1:27 PM EDT Respiratory Rate 26 09/20/2023 1:48 PM EDT Oxygen Saturation 98% 09/20/2023 1:48 PM EDT Inhaled Oxygen Concentration - - Weight 104 kg (229 lb 12.8 oz) 09/20/2023 1:48 P M EDT Height 170.2 cm (5' 7 ) 09/20/2023 1:48 PM EDT Body Mass Index 35.99 09/20/2023 1:48 PM EDT Plan of Treatment Health Maintenance Due Date Last Done Comments CT Colonography 1963 Colonoscopy 1963 Colorectal Cancer Screening 1963 FIT DNA/Cologuard 1963 FIT 1963 FOBT 1963 Sigmoidoscopy 1963 Alcohol/Substance Use Screening 1975 Zoster Vaccines (2 of 2) 01/27/2022 12/02/2021 Hepatitis B Vaccines (1 of 3 - Risk 3-dose series) 2023 RSV Patients and Patients Aged 60 years or older (1 - Risk 60-74 years 1-dose series) 2023 Hepatitis A Vaccines (2 of 2 - Risk 2-dose series) 07/18/2023 01/17/2023 Diabetes: Urine Protein Screening 11/02/2023 11/01/2022, 05/27/2022, 06/15/2021, Additional history exists Lipid Panel 11/02/2023 11/01/2022, 06/05, 06/05/2020 COVID-19 Vaccine ( season) 2023 05/31/2023, 12/02/2021, 03/03/2021, Additional history exists Influenza Vaccine (#1) 2023 , 12/02/2021, 03/03/2021, Additional history exists Diabetes: Foot Exam 01/18/2024 01/17/2023, 01/17/2023, 01/17/2023, Additional history exists Diabetes: Hemoglobin A1C 03/22/2024 024, 05/31/2023, 10/08/2022, Additional history exists Depression Screening 05/30/2024 05/31/2023, 05/31/19 24 SDOH Screening 05/30/2024 05/31/2023 Tobacco Screening 09/19/2024 09/20/2023 Eye Exam 02/19/2026 02/20/2024 DTaP/Tdap/Td Vaccines (3 - Td or Tdap) 10/20/2031 10/19/2021, 07/02/2008, 03/06/1999 HIV Screening Completed 11/01/2022 Hepatitis C Screening Completed 11/01/2022 Pneumococcal Vaccine: 50+ Years Completed 01/17/2023 HIB Vaccines Aged Out No longer eligi ble based on patient's age to complete this topic HPV Vaccines Aged Out No longer eligi ble based on patient's age to complete this topic IPV Vaccines Aged Out No longer eligi ble based on patient's age to complete this topic Meningococcal Vaccine Aged Out No judie adán eligible based on patient's age to complete this topic RSV under 20 months Aged Out No longe r eligible based on patient's age to complete this topic Rotavirus Vaccines Aged Out No longer eligible based on patient's age to complete this topic Procedures Procedure Name Priority Date/Time Associated Diagnosis Comments HM DIABETES EYE EXAM Routine 02/20/2024 12:32 PM EST POCT GLYCATED HEMOGLOBIN, TOTAL Routine 09/20/2023 1:50 PM EDT Type 2 diabetes mellitus without complication, without long-term current use of insulin ([facility]) HEPATITIS C ANTIBODY REFLEX Routine 11/01/2022 9:45 AM EDT HIV 1 RNA, QUANTITATIVE REAL TIME PCR Routine 11/01/2022 9:45 AM EDT ALBUMIN, RANDOM URINE W/CREATININE Routine 11/01/2022 9:45 AM EDT LIPID PANEL, STANDARD Routine 11/01/2022 9:45 AM EDT Hypercholesterolemi a from Last 3 Months or Most Recently Relevant to Health Maintenance Results * Hm Diabetes Eye Exam (02/20/2024 12:32 PM EST) Ortiz Garcia MD HEALTH MAINTENANCE Final Result * (ABNORMAL) POCT HGB A1C (09/20/2023 1:50 PM EDT) Hemoglobin A1C 6.4(A) 4.0 - 6.0 % QC Media Lot # [id number] Lot# Expiration Date [id number] Blood 09/20/2023 1:50 PM EDT us Lizeth Weinstein MD POINT OF CARE TEST ENTER/EDIT OR DERABLES Final Result * Hepatitis C Antibody Reflex (11/01/2022 9:45 AM EDT) Hepatitis C Antibody Nonreactive Nonreactive [facility] Comment:Antibodies to HCV no t detected; does not exclude early acuteHCV infection. 11/01/2022 9:45 AM EDT 11/01/2022 11:08 AM EDT Berry Escalante [facility] BLOOD ORDERABLES Final Res ult Performing Organization Address [facility]/ZIP Co de Phone Number [facility] [address] [place] [phone] * Albumin, Random Urine W/Creatinine (11/01/2022 9:45 AM EDT) Creatinine, Urine 146.63 mg/dL [facility] Microalbumin Urine <5.0 mg/L [facility] Microalbum Creatinine Ratio Ur TNP <30 ug/mg cr [facility] Comment:Unable to calculate albumin/creatinine ratio due to lowmicroalbumin or creatinine result. 11/01/2022 9:45 AM EDT 11/01/2022 11:19 AM EDT Berry Escalante [facility] URINE ORDERABLES Final Res ult Performing Organization Address [facility] Co de Phone Number [facility] [address] [place] [phone] * HIV-1 RNA, Quantitative, Real-Time PCR (11/01/2022 9:45 AM EDT) HIV RNA PCR Qn Copies NOT DETECTED NOT DETECTED copies/mL [facility] HIV RNA PCR Qn Log Copies NOT DETECTED NOT DETECTED [facility] Comment:Result Units: Log co pies/mLThis test was performed using Real-Time Polymerase ChainReaction.Reportable Range: 20 copies/mL to 10,000,000 copies/mL(1.30 log copies/mL to 7.00 log copies/mL).THIS TEST WAS PERFORMED AT:[employer] [place] [phone] MEEHAN MD 11/01/2022 9:45 AM EDT 11/01/2022 11:09 AM EDT Berry Escalante [facility] BLOOD ORDERABLES Final Res ult Performing Organization Address [facility] de Phone Number [facility] [address] [place] [phone] * (ABNORMAL) Lipid Panel, Standard (11/01/2022 9:45 AM EDT) Triglycerides 114 <150 mg/dL [facility] Comment:Desirable Triglyceri de: less than 150 mg/dLBorderline High Triglyceride 150-199 mg/dLHigh Triglyceride: 200-499 mg/dLVery High Triglyceride: greater than or equal to 5OO mg/dL Cholesterol 119 <200 mg/dL [facility] Comment:Desirable Cholestero l: less than 200 mg/dLBorderline High Cholesterol: 200-239 mg/dLHigh Cholesterol: greater than 239 mg/dL LDL Cholesterol Calculated 67 <100 mg/dL [facility] Comment:Desirable LDL: less than 100 mg/dLNear Optimal/Above Optimal LDL: 110- 129 mg/dLBorderline High LDL: 130-159 mg/dLHigh LDL: 160-189 mg/dLVery High LDL: greater than or equal to 190 mg/dL HDL Cholesterol 30(L) >40 mg/dL [facility] Comment:Desirable HDL: great er than 40 mg/dL Note: This HDL assay may give artificially low results in patients with liver disease. Blood Venous blood specimen / Unknown 11/01/2022 9:45 AM EDT 11/01/2022 11:08 AM EDT Berry Escalante [facility] BLOOD ORDERABLES Final Res ult Performing Organization Address [facility] Co de Phone Number [facility] [address] [place] [address] [phone] from Last 3 Months or Most Recently Relevant to Health Maintenance Insurance [facility] Care Teams Dust Puller Relationship Specialty Start Date End Date Lizeth Weinstein MD [address] [place] [phone] PCP - General Family Medicine 11/25/22
== END 2024-06-18 15:57 | disposition home or self-care (01) ==
LOC: HO.HSMS 14:48
PROVIDERS: PCP Family Medicine; Visit Provider Physician Assistant Medical
DX: R25.2 Cramp and spasm (principal); G47.33 Obstructive sleep apnea (adult) (pediatric); R40.0 Somnolence; G47.26 Circadian rhythm sleep disorder, shift work type; R53.82 Chronic fatigue, unspecified
CPT/HCPCS: 99214

== ENCOUNTER → 2024-06-18 14:48 | Outpatient (BNVA) | payer OTHER, SELFPAY | PROVIDERS: PCP Family Medicine; Visit Provider Physician Assistant Medical | DX: G47.33 Obstructive sleep apnea (adult) (pediatric) (principal); G47.26 Circadian rhythm sleep disorder, shift work type ==

== ENCOUNTER 2024-08-06 09:59 | Outpatient (REF) | payer OTHER, SELFPAY ==
--- OUTSIDE RECORDS SUMMARY | 2024-08-06 10:52 | XMS_ITS | Encounter Summary ---
Author Organization [employer] Address [address] [place] [address] Care Team Providers Care Respiratory Tech Name Role Phone Lizeth Weinstein MD Primary Care Provider [phone] Encounter Details Date Type Department Care Team (Latest Contact Info) Description 08/03/2024 Travel Social History Tobacco Use Types Packs/Day Years [...] as of this encounter Plan of Treatment Upcoming Encounters Date Type Department Care Team (Late st Contact Info) Description 08/09/2024 10:30 AM EDT Office Visit [facility] MED[facility]INE [address] [place] [phone] Lizeth Weinstein MD [address] [place] [phone] documented as of this encounter Visit Diagnoses Not on filedocumented in this encounter Additional Health Concerns Assessment Noted Time PHQ-9 Depression Total Score: 0 05/31/19 24 1:28 PM EDT documented as of this encounter Care Teams Respiratory Tech Relationship Specialty Start Date End Date Lizeth Weinstein MD [address] [place] [address] [phone] PCP - General Family Medicine 11/25/22 documented as of this encounter
[2024-08-06 11:02] LABS: Hematocrit 37.3 % (42.0-52.0); Hemoglobin 12.5 g/dl (14.0-18.0); Mean Corpuscular HGB Conc 33.5 g/dl (31.0-36.0); Mean Corpuscular Hemoglobin 29.1 pg (27.0-33.0); Mean Corpuscular Volume 86.7 fL (80.0-98.0); Mean Platelet Volume 9.6 fL (9.4-12.4); Platelet Count 277 X10*3/uL (160-400); Red Cell Distribution Width 13.3 % (11.0-16.0)
[2024-08-06 11:30] LABS: Estimated Average Glucose 134 mg/dL; Hemoglobin A1C 151.1733 umol/L; Hemoglobin A1c % 6.3 % (<6.0); Total Hemoglobin (HGBA1C) 3358.0057 umol/L
[2024-08-06 11:57] LABS: Alanine Aminotransferase 22 U/L (0-40); Albumin Level 4.4 g/dL (3.5-5.0); Alkaline Phosphatase 52 U/L (39-117); Anion Gap 11 (12-20); Aspartate Amino Transferase 22 U/L (5-37); Bilirubin Total 0.5 mg/dL (0.0-1.0); Blood Urea Nitrogen 13 mg/dL (9-16); Calcium 9.6 mg/dL (8.4-10.2); Carbon Dioxide 29 mmol/L (22-29); Chloride 105 mmol/L (96-108); Estimated Glomerular Filt Rate > 60; Glucose Random 107 mg/dL (60-115); Potassium 4.4 mmol/L (3.3-5.1); Sodium 141 mmol/L (135-145); Total Protein 8.2 g/dL (6.5-8.0)
[2024-08-06 12:03] LABS: Cholesterol 123 mg/dL (<200); HDL Cholesterol 39 mg/dL (>40); LDL Cholesterol Calculated 58 mg/dL (<100); Triglycerides 131 mg/dL (<150)
[2024-08-06 12:13] LABS: Creatinine Urine 175.88 mg/dL; Microalbumin Urine < 5.0 mg/L
[2024-08-06 12:20] LABS: HBS Num1 47.49 mIU/mL (0-7.99); ~Hepatitis B Surface Antibody REACTIVE (Nonreactive)
[2024-08-06 12:26] LABS: Vitamin B12 429 pg/mL (200-900)
[2024-08-06 12:30] LABS: Ferritin 70 ng/mL (20-250); TSH reflex Free T4 1.45 uIU/mL (0.32-4.0); Vitamin D 25-OH Total 34.4 ng/mL (>30)
[2024-08-06 13:39] LABS: Reflex LDLD? No
[2024-08-07 16:34] LABS: Homocysteine 9.5 umol/L (< or = 15.2)
[2024-08-09 02:59] LABS: Methylmalonic Acid 135 nmol/L (69-390)
[2024-08-10 05:33] LABS: Hepatitis A Antibody IgG REACTIVE (Nonreactive); ~Hepatitis A Antibody IgG 9.49 S/CO (0.00-0.99)
== END 2024-08-06 10:00 | disposition home or self-care (01) ==
LOC: HO.HHCL 09:59
PROVIDERS: Family Medicine; Visit Provider Physician Assistant Medical
DX: G47.9 Sleep disorder, unspecified (principal); R53.83 Other fatigue; R25.2 Cramp and spasm; E11.9 Type 2 diabetes mellitus without complications; E78.00 Pure hypercholesterolemia, unspecified; Z01.84 Encounter for antibody response examination
CPT/HCPCS: 36415; 80053; 80061; 82043; 82306; 82570; 82607; 82728; 82746; 83036; 83090; 83921; 84443; 85027; 86706; 86708

== ENCOUNTER 2024-09-18 12:39 | Outpatient (AMB) | payer OTHER, SELFPAY ==
--- NOTE | 2024-09-18 12:56 | A.OFFVIS_ITS ---
Vital Signs 09/18/24 12:57 Height 5 ft 7 in Weight 235 lb 6 oz BMI 36.9 BP 104/70 Blood Pressure Location Lt brachial Position Sitting Pulse 90 Pulse Source Pulse Oximeter Pulse Oximetry (%) 96 Oxygen Delivery Method Room Air Intake Visit Reasons: 3 mo follow up Intake Note: Patient presents follow up DARA. Labs/compliance in chart(59/ days, >=4hrs-57%, Average usage 3hrs 19min, Med pressure- 6.3, Med leaks-0.0, AHI-1.1). Accompanied by: Self / Same As Patient Allergies No Known Allergies Allergy (Verified 09/18/24 13:00) HPI Comments Details: 59 y/o male comes for follow up of Sleep Apnea. 06/2023 HST c/w AHI 7/hr with O2 shravan 84%. DARA Compliance Report 06/2024 - 09/2024 Total 59/90 57% >4 hours 4 hours 19min Median press 6.3 Median leaks 0-7 AHI 1.8/hr He works nights 4x per week from 11pm to 9am, comes home and has a difficult time falling asleep, he wakes up at 5pm. He is no longer snoring. He says he feels better since using cpap. His BP has improved on 4 blood pressure medications. A1c is elevated. He denies morning headaches. He denies RLS, however has muscle cramps bilaterally in calves and thighs, and still wake him up at night, 1-2x a week, however they have improved since starting magnesium 400mg PO daily at bedtime. Denies numbness, burning and tingling in feet. His mood is stable, and diet is stable. 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 He washes his mask, changes the filters and asks for supplies as needed. [facility] Medical History Obstructive sleep apnea hypopnea, mild Family History Father Stroke Mother Hypertension Social History Household Members: Spouse Housing: Apartment Alcohol intake: former Patient Tobacco Use Status: Never used Tobacco Physical Exam Vital Signs: Last Vital Signs Pulse 90 09/18/24 12:57 BP 104/70 09/18/24 12:57 Pulse Ox 96 09/18/24 12:57 Oxygen Delivery Method Room Air 09/18/24 12:57 BMI result Body Mass Index 36.9 Const Orientation/consciousness: patient oriented x3 Neuro General: patient oriented x3 and moves all extremities Cranial nerves: Yes Facial sensation intact/muscles of mastication intact, Yes Normal accommodation reflex present, Yes Bilaterally intact EOM present, Yes Nystagmus not present, Yes Normal facial strength present and Yes Other cranial nerve findings present (pinguecula L. eye medial) Gait exam (Neuro): Normal gait present Psych Appearance: grossly normal Affect: normal affect Attitude: cooperative Results Reviewed Results Reviewed: DARA Compliance Report 06/2024 - 09/2024 Total 59/90 57% >4 hours 4 hours 19min Median press 6.3 Median leaks 0-7 AHI 1.8/hr Assessment & Plan Assessment & Plan (1) Obstructive sleep apnea hypopnea, mild: Comment: cpap use Code(s): G47.33 - Obstructive sleep apnea (adult) (pediatric) Category: Medical (2) Low vitamin D level: Code(s): R79.89 - Other specified abnormal findings of blood chemistry Category: Medical (3) Muscle cramps at night: Code(s): R25.2 - Cramp and spasm Category: Medical (4) Shift work sleep disorder: Code(s): G47.26 - Circadian rhythm sleep disorder, shift work type Category: Medical (5) Fatigue: Code(s): R53.83 - Other fatigue Category: Medical Qualifiers: Fatigue type: chronic, unspecified Qualified Code(s): R53.82 - Chronic fatigue, unspecified Plan DARA on cpap therapy and improved use, discussed compliance >4 hours and 70% use quarterly for better health outcomes. He works shift work and sometimes forgets to use it. Fatigue reviewed labs today, start taking vitamin D otc if insurance does not approve. Cramps bilateral in calves and thighs, continue magnesium 400mg po daily. Anemia, chronic? F/u in 6months for compliance. Medications: Changed From cholecalciferol (vitamin D3) 50 mcg PO QAM R79.89 - Other specified abnormal findings of blood chemistry To cholecalciferol (vitamin D3) take one tablet daily at bedtime daily. 25 mcg PO DAILY 90 tabs 0RF low vitamin D 3 months MDD 1 tablet R79.89 - Other specified abnormal findings of blood chemistry Refilled magnesium oxide 400 mg PO DAILY 30 tabs 3RF 30 days Patient Instructions: Sleep Hygiene provided: set a scheduled bedtime and wake time to help regulate the circadian rhythm and balance the release of pituitary hormones. Sleep in a dark room, temperatures below 68 degrees, and no devices n bed. Limit ca ffeinated products 6 hours prior to bed, and limit fluids 2-4 hours prior to bed. Gentle night yoga, diffusing essential oils, and playing soft music can be relaxing. He washes the mask, and hoses, changes out filters and fills his machine with distilled water. RLS: Magnalife otc or rest less leg cream, if cramps don't improve we can discuss gabapentin use. Coding Level of Care Code Est Pt Level 4 (45541) Diagnoses Obstructive sleep apnea hypopnea, mild G47.33 Low vitamin D level R79.89 Muscle cramps at night R25.2 Shift work sleep disorder G47.26 Chronic fatigue R53.82 Fatigue type: chronic, unspecified Time Spent (min) 30 Comment Improving compliance
[2024-09-18 12:57] VITALS: BP 104/70; PULSE 90; O2SAT 96; BMI 36.9
--- OUTSIDE RECORDS SUMMARY | 2024-09-18 13:48 | XMS_ITS | Encounter Summary ---
Author Organization [employer] Address [address] [place] [address] Care Team Providers Care Gasket Former Name Role Phone Berry Escalante Primary Care Provider Unavail Lizeth Maloney MD Primary Care Provider [phone] Encounter Details Date Type Department Care Team (Late st Contact Info) Description 09/01/2022 Orders Only [facility] [address] [place] [address] Marnie Gonzalez LPN Social History Tobacco Use [...] Care Team (Late st Contact Info) Description 01/03/2025 11:00 AM EDT Office Visit [facility] [address] [place], [place] [id number] Xenia Borges OD [address] [place] [address] documented as of this encounter Procedures Procedure [...] Qn Copies NOT DETECTED NOT DETECTED copies/mL [facility] HIV RNA PCR Qn Log Copies NOT DETECTED NOT DETECTED [facility] Comment:Result Units: Log co pies/mLThis test was performed using Real-Time Polymerase ChainReaction.Reportable Range: 20 copies/mL to 10,000,000 copies/mL(1.30 log copies/mL to 7.00 log copies/mL).THIS TEST WAS PERFORMED AT:[facility] [place] [id number] MEEHAN MD 11/01/2022 9:45 AM EDT 11/01/2022 11:09 AM EDT Berry [facility] LAB BLOOD ORDERABLES Final Res ult Performing Organization Address [facility] Co de Phone Number [facility] [address] [place] [phone] * Hepatitis C Antibody Reflex (11/01/2022 9:45 AM EDT) Hepatitis C Antibody Nonreactive Nonreactive [facility] Comment:Antibodies to HCV no t detected; does not exclude early acuteHCV infection. 11/01/2022 9:45 AM EDT 11/01/2022 11:08 AM EDT Berry [facility] LAB BLOOD ORDERABLES Final Res ult Performing Organization Address [facility]/ZIP Co de Phone Number [facility] [address] [place] [phone] * Albumin, Random Urine W/Creatinine (11/01/2022 9:45 AM EDT) Creatinine, Urine 146.63 mg/dL [facility] Microalbumin Urine <5.0 mg/L [facility] Microalbum Creatinine Ratio Ur TNP <30 ug/mg cr [facility] Comment:Unable to calculate albumin/creatinine ratio due to lowmicroalbumin or creatinine result. 11/01/2022 9:45 AM EDT 11/01/2022 11:19 AM EDT us [facility] URINE ORDERABLES Final Res ult [facility] [address] [place] [phone] documented in this encounter Visit Diagnoses Not on filedocumented in this encounter Care Teams Gasket Former Relationship Specialty Start Date End Date Berry Escalante AGNP PCP - General Family Medicine 07/29/22 11/24/22 Lizeth Weinstein MD [address] [place] [phone] PCP - General Family Medicine 11/25/22 documented as of this encounter
--- OUTSIDE RECORDS SUMMARY | 2024-09-18 13:48 | XMS_ITS | Patient Health Record ---
Author Organization [facility] Address [address] [place] [address] Care Team Providers Care Wedding Designer Name Role Phone Shabana [place] Primary Care Provider Tu Moody [phone] Reason For Referral No Information Medications Medication SIG (Take, Route, Frequency, Duration) Notes Start Date End Date Status Aspir-81 81 MG 1 tablet Orally Once a day for 30 day(s) Active Atorvastatin Calcium 40 MG 1 tablet Oral ly Once a day for 30 day(s) Active Losartan Potassium-HCTZ 50-12.5 MG 1 tablet Orally Once a day for 30 day(s) Active Immunizations Vaccine Route Administration Date Status Comme nts Influenza Unknown 01/18/2018 Administered Social History Tobacco Use: Social History Observation Description Date Details (start date - stop date) Never Smoker NA - NA Tobacco Use/Smoking Question Answer Notes Patient is a nonsmoker Alcohol Screen Question Answer Notes Did you have a drink containing alcohol in the p ast year? No Points 0 Interpretation Negative Section Notes: Nonsmoker; no sig alcohol From [place] originally Problems Problem Type SNOMED Code ICD Code Onset Dates Problem Status W/U Status Risk Notes Problem 584220681 Encounter for screening for malignant neoplasm of colon (Z12.11) Active confirmed Problem 685276480186435 Preprocedural examination (Z01.818) Active confirmed Problem 618450228233439 Aspirin long-ter m use (Z79.82) Active confirmed Problem 54855474 Hypertension, unspecified type (I10) Active confirmed Plan Of Treatment Future Test Test Name Order Date COLONOSCOPY 04/12/2018 Insurance Providers Payer Name Payer Address Payer Phone Subscriber Number Group Number Insured Name Patient Relationship to Insured Coverage Start Date Coverage End Date [facility] [address] [facility] [phone] [id number] DENILSON KIRBY Self - patient is the insured Medical (General) History Medical History History ICD Code Denies PR,DM,CVA,Lung disease,renal dise ase Hypertension Hyperlipidemia Surgical History Surgery Date(Month/Year)
--- OUTSIDE RECORDS SUMMARY | 2024-09-18 13:48 | XMS_ITS | Clinical Summary ---
Author Organization [facility] Address [address] [place] [address] Phone Care Team Providers Care Barrel Leveler Name Role Phone Bertha Nicholson [address] [employer]-Emeli Primary Care Provider Unavailable Allergies Active Allergy [...] test without active tuberculosis 12/28/2004 Overview (05/03/2022): [facility] update Immunizations Immunization Administration Dates Next Due [...] Health Maintenance Due Date Last Done Comments Colorectal Cancer Screening: Annual FOBT 05/13/2012 Colorectal Cancer Screening: Colonoscopy 05/13/2012 Colorectal Cancer Screening: Sigmoidoscopy 05/13/2012 Diabetes: Hemoglobin A1C 07/02/2024 09/20/2023, 04/0 03/2020 Diabetes: Ophthalmology Exam 07/02/2024 Diabetes: Pedal Pulse Checked 07/02/2024 Diabetes: Sensory Foot Exam 07/02/2024 Diabetes: Visual Foot Exam 07/02/2024 Influenza Vaccine (#1) 2024 3, 12/02/2021, 03/03/2021, Additional history exists Pneumococcal Vaccine: 50+ Years Completed 01/17/2023 Pneumococcal Vaccine: Peds (0 to 5 Years) and At-Risk Patients (6 to 49 Years) Discontinued 01/17/2023 Hepatitis B Vaccine Aged Out No longe r eligible based on patient's age to complete this topic Procedures Procedure Name Priority Date/Time Associated Diagnosis Comments EXT RESULT ENTRY Routine 06/05/2020 from Last 3 Months or Most Recently Relevant to Health Maintenance Results * EXT RESULT ENTRY (06/05/2020) WBC 6.7 3.3 - 10.0 10*3/ML Red Blood Cell Count 4.72 Hemoglobin 13.7 13.5 - 17.5 Hematocrit 41.0 41.0 - 53.0 Platelets 220 150 - 399 10*3/UL MCV 86.9 82.0 - 108.0 Sodium 140 137 - 147 Potassium 4.2 3.4 - 5.5 Chloride 104 99 - 108 Bicarbonate (CO2) 30 22 - 30 mmol/L Glucose 115 60 - 200 BUN 17 4 - 21 mg/dL Creatinine 1.04 0.60 - 1.30 mg/dL Calcium 10.0 8.7 - 10.7 mg/dL eGFR Non-Afr Martiniquais 79 eGFR 92 ALT (SGPT) 21 U/L AST (SGOT) 21 U/L Alkaline Phosphatase 59 U/L Vitamin D, 25-OH, Total 19 ng/mL Hemoglobin A1C 5.9 4.0 - 6.0 Creatinine, Urine Random 65 mg/dL Alb/Creat Ratio, Ur 3 mg/g Creat Triglycerides 111 40 - 160 Cholesterol 137 0 - 200 HDL 42 35 - 70 MG/DL LDL Calculated 111 0 - 160 mg/dL 06/05/2020 us Historical Provider LAB BLOOD ORDERABLES Zara l Result from Last 3 Months or Most Recently Relevant to Health Maintenance Insurance [facility] Care Teams Barrel Leveler Relationship Specialty Start Date End Date Bertha Nicholson FNP-C PCP - General Nurse Practitioner 09/25/20
== END 2024-09-18 13:42 | disposition home or self-care (01) ==
LOC: HO.HSMS 12:40
PROVIDERS: PCP Family Medicine; Visit Provider Physician Assistant Medical
DX: G47.33 Obstructive sleep apnea (adult) (pediatric) (principal); R79.89 Other specified abnormal findings of blood chemistry; R25.2 Cramp and spasm; G47.26 Circadian rhythm sleep disorder, shift work type; R53.82 Chronic fatigue, unspecified; R40.0 Somnolence
CPT/HCPCS: 99214

== ENCOUNTER 2025-02-08 08:03 | Outpatient (REF) | payer OTHER, SELFPAY ==
--- OUTSIDE RECORDS SUMMARY | 2025-02-08 08:29 | XMS_ITS | Encounter Summary ---
Author Organization [employer] Address [address] [place] [address] Care Team Providers Care Chemical Technician Name Role Phone Lizeth Weinstein MD Primary Care Provider [phone] Encounter Details Date Type Department Care Team (Late st Contact Info) Description 12/12/2023 Orders Only [facility] [address] [place] [address] Lizeth Weinstein MD [address] [place] [address] Social History Tobacco Use Types Packs/Day Years [...] documented as of this encounter Care Teams Chemical Technician Relationship Specialty Start Date End Date Lizeth Weinstein MD [address] [place] [phone] PCP - General Family Medicine 11/25/22 documented as of this encounter
--- OUTSIDE RECORDS SUMMARY | 2025-02-08 08:29 | XMS_ITS | Clinical Summary ---
Author Organization [employer] Address [address] [place] [address] Care Team Providers Care Final Inspector Paper Name Role Phone Lizeth Weinstein MD Primary Care Provider [phone] Allergies Active Allergy Reactions Criticality Noted Date Comments Chloroquine Itching Low 10/08/2022 Medications sildenafil (Viagra) 50 MG tablet take 1 tablet by oral route every day as needed approximately 1 hour before sexual activity 10 tablet 1 09/29/19 23 Active glucose blood (FREESTYLE LITE) test strip at bed time. 06/05/19 21 Active cholecalciferol (Vitamin D-3) 50 MCG (1999) tabletIndication s:Vitamin D deficiency Take 2,000 Units by mouth in the morning. 90 tablet 11 10/09/19 23 Active aspirin (Aspirin Low Dose) 81 MG EC tablet Take 1 tablet (81 mg) by mouth in the morning. 90 tablet 3 05/31/19 24 Active magnesium oxide (Mag-Ox) 400 (240 Mg) MG tablet Take 1 tablet (400 mg) by mouth Once per day. 90 tablet 3 09/20/19 24 Active amLODIPine (Norvasc) 10 MG tablet TAKE 1 TABLET(10 MG) BY MOUTH IN THE MORNING 90 tablet 3 08/01/19 25 Active losartan-hydroCH LOROthiazide (Hyzaar) 100-25 MG tablet TAKE 1 TABLET BY MOUTH EVERY MORNING 90 tablet 3 08/01/19 25 Active metoprolol succinate XL (Toprol-XL) 50 MG 24 hr tablet TAKE 1 TABLET(50 MG) BY MOUTH IN THE MORNING. DO NOT CRUSH OR CHEW 90 tablet 3 08/01/19 25 Active Blood Pressure Monitor miscIndications: Essential hypertension Check BP daily 1 each 08/10/19 25 Active ciclopirox (Loprox) 0.77 % creamIndications :Tinea pedis of both feet Apply topically 2 times daily. 90 g 1 08/11/19 25 Active metFORMIN XR (Glucophage-XR) 500 MG 24 hr tabletIndication s:Type 2 diabetes mellitus without complication, without long-term current use of insulin (HCC) TAKE 2 TABLETS BY MOUTH TWICE DAILY 360 tablet 1 10/19/19 25 Active atorvastatin (Lipitor) 40 MG tablet TAKE 1 TABLET(40 MG) BY MOUTH AT BEDTIME 90 tablet 1 10/19/19 25 Active spironolactone (Aldactone) 25 MG tablet TAKE 1 TABLET(25 MG) BY MOUTH IN THE MORNING 90 tablet 3 11/29/19 25 Active Active Problems Problem Noted Date Diagnosed Date DARA (obstructive sleep apnea) 09/20/2023 Assessment & Plan (08/10/2024 3:36 PM EDT): - following with sleep medicine clinic at [facility], last seen in June 2024 - sleep study in June 2023, mild DARA. AutoPAP5-20 cm H2O was recommended Assessment & Plan (09/20/2023 5:56 AM EDT): - evaluated by sleep medicine clinic at [facility] - sleep study in June 2023, mild DARA. AutoPAP5-20 cm H2O was recommended Muscle cramp, nocturnal 09/20/2023 Assessment & Plan (08/10/2024 3:37 PM EDT): - continue magnesium Assessment & Plan (09/20/2023 5:34 PM EDT): - continue magnesium Anemia 01/17/2023 Assessment & Plan (08/10/2024 3:35 PM EDT): - very mild, improving - recheck lab, including H. pylori - referred for colonoscopy Assessment & Plan (01/21/2023 12:31 PM EST): [...] of 35.0 to 35.9 in adult 10/08/2022 Assessment & Plan (08/10/2024 3:38 PM EDT): - Continue working on lifestyle modifications. - Generic advice as below. Tailor for your unique body, character, and specific condition. Dietary Recommendations: Fruits, vegetables, whole grains, protein foods, and fat-free or low-fat dairy products are healthy choices. Eat different types of protein foods in your diet. This can include seafood, lean meats, poultry, beans, peas, lentils, nuts, seeds, soy products, and eggs. Limit foods and beverages higher in added sugars, saturated fat, and sodium. Exercise Recommendations: At least 150 minutes of moderate-intensity physical activity per week, or an equivalent combination of moderate- and vigorous-intensity activity Health care maintenance 10/08/2022 Assessment & Plan (08/10/2024 3:40 PM EDT): Most recent physical exam date 08/09/24 Colon cancer screening: Referred again. Patient prefers [facility]. Discussed about dental care. Assessment & Plan (10/08/2022 2:02 PM EDT): PHQ: 0 Substance use: denies nicotine products, etoh, or drug use. Lipids: lipid panel Colonoscopy: I found the pre-procedural examination for colonoscopy on 04/12/2018, but there is no actual colonoscopy results. Referral to GI Eye exam: [facility] one year ago. Dental home: before covid. Advised [facility] dental. Type 2 diabetes mellitus without complication Assessment & Plan (08/10/2024 3:17 PM EDT): - Hgb A1C 6.0% on 08/09/24 - Continue working on lifestyle modifications - continue metformin XR 1000 mg bid - Continue checking glucose - Microalbumin test: 11/01/22 UACR no microalbuminuria - Lipid profile: 08/06/24 - Diabetic eye exam: [facility], Feb. No diabetic retinopathy - Foot exam: August 2024, tinea pedis Assessment & Plan (09/20/2023 2:12 PM EDT): - Hgb A1C 6.4% on 09/20/23 - Continue working on lifestyle modifications - continue metformin XR 1000 mg bid - Continue checking glucose: - Microalbumin test: 11/01/22 UACR no microalbuminuria - Lipid profile: 11/01/22 - Diabetic eye exam: [facility] - Foot exam: Jan 2023 Assessment & Plan (06/17/2023 6:17 AM EDT): - Hgb A1C 6.2% on 05/31/23, stable - Continue working on lifestyle modifications - continue metformin XR 1000 mg bid - Continue checking glucose: - Microalbumin test: 11/01/22 UACR no microalbuminuria - Lipid profile: 11/01/22 - Diabetic eye exam: [facility] - Foot exam: Jan 2023 Assessment [...] precautions discussed. Hypercholesterolemia 02/22/2018 Assessment & Plan (08/10/2024 3:13 PM EDT): - current medication: atorvastatin 40 mg at bedtime - last lipid profile in 08/06/24 - 10-year ASCVD risk 16.5% - continue working on lifestyle modifications Assessment & Plan (09/20/2023 5:59 AM EDT): [...] = statin use. 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 Assessment & Plan (08/10/2024 3:37 PM EDT): - following with [facility] Sleep medicine clinic, last seen in June 2024 - continue CPAP as prescribed Assessment & Plan (09/20/2023 5:33 PM EDT): - seen by sleep medicine clinic in May 2023 - sleep study suggests mild DARA - continue CPAP as prescribed Assessment & Plan (06/17/2023 6:13 AM EDT): - seen by sleep medicine clinic in May 2023 - home sleep study is ordered - probable DARA given HTN on multiple antihypertensives - pt also has spindle tester - patient was recommended to try magnesium and melatonin by sleep medicine clinic provider. Assessment & Plan (01/21/2023 12:24 PM EST): - refer to sleep medicine clinic - probable DARA given HTN on multiple antihypertensives - pt also has spindle tester Essential hypertension 10/29/2016 Assessment & Plan (08/10/2024 3:13 PM EDT): -Goal BP < 140/90 per JNC-8 and < 130/80 per ACC/AHA guideline (Treatment threshold >= 130/80) -BP at goal today -Continue working on lifestyle modifications -Recommended self-monitoring BP. -Continue current medications: Amlodipine 10 mg daily; losartan - hydrochlorothiazide 100-25 mg daily; spironolactone 25 mg daily; metoprolol succinate 50 mg daily -Optimize Tx for DARA Assessment & Plan (09/22/2023 6:11 AM EDT): [...] Problem Noted Date Diagnosed Date Resolved Date History of alcoholism (CMS/HCC) 12/19/2017 08/10/2024 Encounters Date Type Department Care Team Description 01/03/2025 11:00 AM EDT Office Visit [facility] [address] [place] [address] Xenia Borges, OD Type 2 diabetes mellitus without ophthalmic manifestations (HCC) (Primary Dx); Myopia of both eyes with astigmatism and presbyopia; Pterygium of left eye 01/03/2025 Travel 01/02/2025 Travel 11/28/2024 Refill [facility] [address] [place] [address] Lizeth Weinstein MD from Last 3 Months Immunizations Immunization Administration Dates Next Due Hep A, Adult 08/09/2024,01/17/2023 Influenza injectable quadriv alent IIV4 with preservative 12/19/2017 Influenza injectable quadriv alent preservative free 01/17/2023,12/02/2021,03/03/2021 Influenza, IIV3, injectable 01/12/2016, 3,01/20/2008 Influenza, Injectable, MDCK, preservative free 12/09/2023 Influenza, Unspecified 01/20/2008 Influenza, injectable, quadr ivalent, preservative free, pediatric 01/12/2016,02/23/2013 Pfizer Covid-19 Vaccine 12+ 05/31/2023 Pneumococcal Conjugate PCV 20 01/17/2023 TD (adult), 2 Lf tetanus tox oid, preservative free, adsorbed 10/19/2021,03/06/1999 Tdap 07/02/2008 Zoster, Recombinant 11/08/2023,12/02/2021 Family History Medical History Relation Name Comments Stroke Father Esophageal cancer Paternal Grandfather Relation Name Status Comments Father Paternal Grandfather Social History Tobacco Use Types Packs/Day Years [...] Answer Date Recorded Patient Health Questionnaire-9 Score 3 08/09/2024 Patient Health Questionnaire-9 Score 3 08/09/2024 Last PHQ-9: Questionnaire Data Not on file 0 08/09/2024 Housing Stability Answer Date Recorded What is your housing situation today? I have dyana cuellar 08/09/[address] you li ve. Do you have problems with any of the following? None of the above 08/09/2024 Food Insecurity Answer Date Recorded Within the past 12 months, y ou worried that your food would run out before you got money to buy more: Never True 08/09/2024 Within the past 12 months,th e food you bought just didn't last and you didn't have enough money to get more: Never True 07/2024 Transportation Answer Date Recorded In the past 12 months, has l ack of transportation kept you from medical appts, meetings, work or from getting things needed for daily living? I am not sure 08/09/2024 Utilities Answer Date Recorded In the past 12 months, has t he electric, gas, oil or water company threatened to shut off services in your home? Already shut Off 08/09/2024 Depression Answer Date Recorded Patient Health Questionnaire-2 Score 1 08/09/2024 Internet Access Answer Date Recorded Internet Access Q1 Yes 08/09/2024 Internet Access Q2 Not on file 08/09/2024 Sex and Gender Information Value Date Recorded Sex Assigned at Male 01/04/2022 10:32 AM EDT Legal Sex Male 10:32 AM EDT Gender Identity Male 01/04/2022 10:32 AM EDT Sexual Orientation Straight 01/04/2022 10 :32 AM EDT Last Filed Vital Signs Vital Sign Reading Time Taken Comments Blood Pressure 128/72 08/09/2024 10:02 AM EDT Pulse 89 08/09/2024 10:02 AM EDT Temperature 36.2 C (97.1 F) 08/09/2024 10:02 AM EDT Respiratory Rate 18 08/09/2024 10:02 AM EDT Oxygen Saturation 98% 08/09/2024 10:02 AM EDT Inhaled Oxygen Concentration - - Weight 106 kg (234 lb 6.4 oz) 08/09/2024 10:02 A M EDT Height 170.2 cm (5' 7 ) 08/09/2024 10:02 AM EDT Body Mass Index 36.71 08/09/2024 10:02 AM EDT Plan of Treatment Health Maintenance Due Date Last Done Comments CT Colonography 1963 Colonoscopy 1963 Colorectal Cancer Screening 1963 FIT DNA/Cologuard 1963 FIT 1963 FOBT 1963 Sigmoidoscopy 1963 RSV Patients and Patients Aged 60 years or older (1 - Risk 50-74 years 1-dose series) 05/13/2013 COVID-19 Vaccine ( season) 2024 12/12/2023, 05/31/2023, 12/02/2021, Additional history exists Influenza Vaccine (#1) 2024 , 01/17/2023, 12/02/2021, Additional history exists Diabetes: Hemoglobin A1C 02/08/2025 025, 09/20/2023, 05/31/2023, Additional history exists Diabetes: Urine Protein Screening 08/06/2025 08/06/2024, 11/01/2022, 05/27/2022, Additional history exists Lipid Panel 08/06/2025 08/06/2024, 10/06, 06/15/2021, Additional history exists Alcohol/Substance Use Screening 08/09/2025 08/09/2024 Depression Screening 08/09/2025 08/09/2024, 08/10/19 25 Diabetes: Foot Exam 08/09/2025 08/09/2024, 08/09/2024, 08/09/2024, Additional history exists Disability Screening 08/09/2025 08/09/2024 SDOH Screening 08/09/2025 08/09/2024 Tobacco Screening 01/03/2026 01/03/2025 Eye Exam 01/03/2027 01/03/2025, 12/07, 01/03/2025, Additional history exists DTaP/Tdap/Td Vaccines (3 - Td or Tdap) 10/20/2031 10/19/2021, 07/02/2008, 03/06/1999 HIV Screening Completed 11/01/2022 Hepatitis C Screening Completed 11/01/2022 Pneumococcal Vaccine: 50+ Years Completed 01/17/2023 Zoster Vaccines Completed 11/08/2023, 12/02/2021 Hepatitis A Vaccines Completed 08/09/2024, 01/18/20 23 HIB Vaccines Aged Out No longer eligi ble based on patient's age to complete this topic HPV Vaccines Aged Out No longer eligi ble based on patient's age to complete this topic Hepatitis B Vaccines Discontinued IPV Vaccines Aged Out No longer eligi ble based on patient's age to complete this topic Meningococcal B Vaccine Aged Out No l onger eligible based on patient's age to complete [...] Procedure Name Priority Date/Time Associated Diagnosis Comments POCT GLYCATED HEMOGLOBIN, TOTAL Routine 08/09/2024 10:14 AM EDT Type 2 diabetes mellitus without complication, without long-term current use of insulin ([facility]/HCC) LIPID PANEL WITH REFLEX TO DIRECT LDL Routine 08/06/2024 10:31 AM EDT Type 2 diabetes mellitus without complication, without long-term current use of insulin ([facility]/HCC) ALBUMIN, RANDOM URINE W/CREATININE Routine 08/06/2024 10:26 AM EDT Type 2 diabetes mellitus without complication, without long-term current use of insulin ([facility]) HM DIABETES EYE EXAM Routine 02/20/2024 12:32 PM EST HEPATITIS C ANTIBODY REFLEX Routine 11/01/2022 9:45 AM EDT HIV 1 RNA, QUANTITATIVE REAL TIME PCR Routine 11/01/2022 9:45 AM EDT from Last 3 Months or Most Recently Relevant to Health Maintenance Results * POCT HGB A1C (08/09/2024 10:14 AM EDT) Hemoglobin A1C 6.0 4.0 - 6.0 % QC Media Lot # [id number] Lot# Expiration Date Blood 08/09/2024 10:1 4 AM EDT Lizeth Weinstein MD POINT OF CARE TEST ENTER/EDIT OR DERABLES Final Result * (ABNORMAL) Lipid Panel with Reflex to Direct LDL (08/06/2024 10:31 AM EDT) Triglycerides 131 <150 mg/dL [facility] Comment:Desirable Triglyceri de: less than 150 mg/dLBorderline High Triglyceride 150-199 mg/dLHigh Triglyceride: 200-499 mg/dLVery High Triglyceride: greater than or equal to 5OO mg/dL Cholesterol 123 <200 mg/dL [facility] Comment:Desirable Cholestero l: less than 200 mg/dLBorderline High Cholesterol: 200-239 mg/dLHigh Cholesterol: greater than 239 mg/dL LDL Cholesterol Calculated 58 <100 mg/dL [facility] Comment:Desirable LDL: less than 100 mg/dLNear Optimal/Above Optimal LDL: 110- 129 mg/dLBorderline High LDL: 130-159 mg/dLHigh LDL: 160-189 mg/dLVery High LDL: greater than or equal to 190 mg/dL HDL Cholesterol 39(L) >40 mg/dL [facility] Comment:Desirable HDL: great er than 40 mg/dL Note: This HDL assay may give artificially low results in patients with liver disease. Blood 08/06/2024 10:3 1 AM EDT 08/06/2024 10:31 AM EDT Lizeth Weinstein MD LAB BLOOD ORDERABLES Final Resul t Performing Organization Address [facility] Co de Phone Number [facility] [address] [place] [phone] * Albumin, Random Urine W/Creatinine (08/06/2024 10:26 AM EDT) Creatinine, Urine 175.88 mg/dL [facility] Microalbumin Urine <5.0 mg/L [facility] Microalbum Creatinine Ratio Ur TNP <30 ug/mg cr [facility] Comment:Unable to calculate albumin/creatinine ratio due to lowmicroalbumin or creatinine result. Urine 08/06/2024 10:2 6 AM EDT 08/06/2024 10:58 AM EDT Lizeth Weinstein MD LAB URINE ORDERABLES Final Resul t Performing Organization Address [facility] Co de Phone Number [facility] [address] [place] [address] [phone] * Diabetes Eye Exam (02/20/2024 12:32 PM EST) Ortiz Provider HEALTH MAINTENANCE Final Result * Hepatitis C Antibody Reflex (11/01/2022 9:45 AM EDT) Hepatitis C Antibody Nonreactive Nonreactive [facility] Comment:Antibodies to HCV no t detected; does not exclude early acuteHCV infection. 11/01/2022 9:45 AM EDT 11/01/2022 11:08 AM EDT Berry Escalante [facility] LAB BLOOD ORDERABLES Final Res ult Performing Organization Address [facility]/ZIP Co de Phone Number [facility] [address] [place] [phone] * HIV-1 RNA, Quantitative, Real-Time PCR (11/01/2022 9:45 AM EDT) HIV RNA PCR Qn Copies NOT DETECTED NOT DETECTED copies/mL [facility] HIV RNA PCR Qn Log Copies NOT DETECTED NOT DETECTED [facility] Comment:Result Units: Log co pies/mLThis test was performed using Real-Time Polymerase ChainReaction.Reportable Range: 20 copies/mL to 10,000,000 copies/mL(1.30 log copies/mL to 7.00 log copies/mL).THIS TEST WAS PERFORMED AT:[employer] [address] [phone] MEEHAN MD 11/01/2022 9:45 AM EDT 11/01/2022 11:09 AM EDT Berry Escalante [facility] LAB BLOOD ORDERABLES Final Res ult Performing Organization Address [facility]/ZIP Co de Phone Number [facility] [address] [place] [address] [phone] from Last 3 Months or Most Recently Relevant to Health Maintenance Insurance [employer] * Guarantor: Dustin Mejia Account Type Relation to Patient Date of Phone Billing Address Personal/Family Self [address] [place] Care Teams Final Inspector Paper Relationship Specialty Start Date End Date Lizeth Weinstein MD [address] [place] [id number] PCP - General Family Medicine 11/25/22
--- OUTSIDE RECORDS SUMMARY | 2025-02-08 08:29 | XMS_ITS | Encounter Summary ---
Author Organization [employer] Address [address] [place] [address] Care Team Providers Care Stevedoring Superintendent Name Role Phone Lizeth Weinstein MD Primary Care Provider [phone] Encounter Details Date Type Department Care Team (Late st Contact Info) Description 12/14/2023 Orders Only [facility] MED[facility] [address] [place] [address] Lizeth Weinstein MD [address] [place] [address] Social History Tobacco Use Types Packs/Day Years [...] documented as of this encounter Care Teams Stevedoring Superintendent Relationship Specialty Start Date End Date Lizeth Weinstein MD [address] [place] [phone] PCP - General Family Medicine 11/25/22 documented as of this encounter
--- OUTSIDE RECORDS SUMMARY | 2025-02-08 08:29 | XMS_ITS | Encounter Summary ---
Author Organization [employer] Address [address] [place] [address] Care Team Providers Care Outpatient Interviewing Clerk Name Role Phone Aleja Segura Primary Care Provider Radha Berry Hidalgo Primary Care Provider Unavail able Lizeth Weinstein MD Primary Care Provider [phone] Encounter Details Date Type Department Care Team (Latest Contact Info) Description 03/05/2019 Abstract [facility] CONVERSIONS Dental, Provider, DDS Social History Tobacco [...] on filedocumented in this encounter Care Teams Outpatient Interviewing Clerk Relationship Specialty Start Date End Date Aleja Segura FNP PCP - General Family Medicine 11/02/21 07/28/22 Berry Escalante AGNP PCP - General Family Medicine 07/29/22 11/24/22 Lizeth Weinstein MD [address] [place] [phone] PCP - General Family Medicine 11/25/22 documented as of this encounter
--- OUTSIDE RECORDS SUMMARY | 2025-02-08 08:29 | XMS_ITS | Encounter Summary ---
Author Organization [employer] Address [address] [place] [address] Care Team Providers Care Documentation Supervisor Name Role Phone Lizeth Weinstein MD Primary Care Provider [phone] Encounter Details Date Type Department Care Team ([facility] st Contact Info) Description 02/21/2024 Orders Only [facility] [address] [place] [address] Provider, MD Ortiz Social History Tobacco Use [...] documented as of this encounter Care Teams Documentation Supervisor Relationship Specialty Start Date End Date Lizeth Weinstein MD [address] [place] [phone] PCP - General Family Medicine 11/25/22 documented as of this encounter
--- OUTSIDE RECORDS SUMMARY | 2025-02-08 08:29 | XMS_ITS | Encounter Summary ---
Author Organization [employer] Address [address] [place] [address] Care Team Providers Care Sock Liner Name Role Phone Lizeth Weinstein MD Primary Care Provider [phone] Encounter Details Date Type Department Care Team (Late st Contact Info) Description 02/17/2023 Orders Only [facility] MEDICINE [address] [place] [address] Lizeth Weinstein MD [address] [place] [address] Type 2 diabetes mellitus without complication, without long-term current use of insulin ([facility]) (Primary Dx); Cataract, unspecified cataract type, [...] complication, without long-term current use of insulin (HCC)- Primary Cataract, unspecified cataract type, unspecified laterality Posterior vitreous detachment of both eyes Vitreous degeneration documented in this encounter Additional Health Concerns Assessment Noted Time PHQ-9 Depression Total Score: 0 10/09/19 1:18 PM EDT documented as of this encounter Care Teams Sock Liner Relationship Specialty Start Date End Date Lizeth Weinstein MD [address] [place] [address] PCP - General Family Medicine 11/25/22 documented as of this encounter
--- OUTSIDE RECORDS SUMMARY | 2025-02-08 08:29 | XMS_ITS | Encounter Summary ---
Author Organization [employer] Address [address] [address] [place] [address] Care Team Providers Care Plasma Specialist Name Role Phone Berry Escalante Primary Care Provider Unavail Lizeth Maloney MD Primary Care Provider [phone] Encounter Details Date Type Department Care Team (Late st Contact Info) Description 09/01/2022 Orders Only [facility] [address] [place] [address] Marnie Gonzalez LPN Social History Tobacco Use [...] Real-Time PCR (11/01/2022 9:45 AM EDT) Pathologist [facility] HIV RNA PCR Qn Copies NOT DETECTED NOT DETECTED copies/mL [facility] HIV RNA PCR Qn Log Copies NOT DETECTED NOT DETECTED [facility] Comment:Result Units: Log co pies/mLThis test was performed using Real-Time Polymerase ChainReaction.Reportable Range: 20 copies/mL to 10,000,000 copies/mL(1.30 log copies/mL to 7.00 log copies/mL).THIS TEST WAS PERFORMED AT:[facility] [place] [id number] MEEHAN MD 11/01/2022 9:45 AM EDT 11/01/2022 11:09 AM EDT [facility] LAB BLOOD ORDERABLES Final Res ult Performing Organization Address [facility] Co de Phone Number [facility] [address] [place] [phone] * Hepatitis C Antibody Reflex (11/01/2022 9:45 AM EDT) Pathologist [facility] Hepatitis C Antibody Nonreactive Nonreactive [facility] Comment:Antibodies to HCV no t detected; does not exclude early acuteHCV infection. 11/01/2022 9:45 AM EDT 11/01/2022 11:08 AM EDT [facility] LAB BLOOD ORDERABLES Final Res ult Performing Organization Address [facility]/ZIP Co de Phone Number [facility] [address] [place] [phone] * Albumin, Random Urine W/Creatinine (11/01/2022 9:45 AM EDT) Pathologist [facility] Creatinine, Urine 146.63 mg/dL [facility] Microalbumin Urine <5.0 mg/L [facility] Microalbum Creatinine Ratio Ur TNP <30 ug/mg cr [facility] Comment:Unable to calculate albumin/creatinine ratio due to lowmicroalbumin or creatinine result. 11/01/2022 9:45 AM EDT 11/01/2022 11:19 AM EDT [facility] LAB URINE ORDERABLES Final Res ult [facility] [address] [place] [phone] documented in this encounter Visit Diagnoses Not on filedocumented in this encounter Care Teams Plasma Specialist Relationship Specialty Start Date End Date Berry Escalante AGNP PCP - General Family Medicine 07/29/22 11/24/22 Lizeth Weinstein MD [address] [place] [phone] PCP - General Family Medicine 11/25/22 documented as of this encounter
--- OUTSIDE RECORDS SUMMARY | 2025-02-08 08:29 | XMS_ITS | Encounter Summary ---
Author Organization [employer] Address [address] [place] [address] Care Team Providers Care Qa Tech Name Role Phone Lizeth Weinstein MD Primary Care Provider [phone] Reason for Visit * Reason Comments Med Refill Encounter Details Date Type Department Care Team ([facility] st Contact Info) Description 02/19/2023 Refill [facility] [address] [place] [address] Berry Escalante AGNP Social History Tobacco Use [...] documented as of this encounter Care Teams Qa Tech Relationship Specialty Start Date End Date Lizeth Weinstein MD [address] [place] [address] PCP - General Family Medicine 11/25/22 documented as of this encounter
--- OUTSIDE RECORDS SUMMARY | 2025-02-08 08:29 | XMS_ITS | Encounter Summary ---
Author Organization [employer] Address [address] [place] [address] Care Team Providers Care Snorkelling Instructor Name Role Phone Lizeth Weinstein MD Primary Care Provider [phone] Reason for Visit * Reason Onset Date Comments Referral 02/16/2023 Encounter Details Date Type Department Care Team ([facility] st Contact Info) Description 02/16/[address] [facility] [address] [place] [address] Lizeth Weinstein MD [address] [place] [address] Referral Social History Tobacco Use Types Packs/Day [...] need a referral as the secondary insurance ([facility]) is requesting it. Insurance has been verified for patient and both are correct. [place] stated that since secondary insurance is picking up the cost they requested an additional referral. * Telephone Encounter - Vanessa Ramirez - 02/16/2023 12:21 PM EST Tc from [place] with [facility] requesting a secondary referral that was faxed over on 02/14/2023 with the patients correct insurance request. Please contact [place] @ [phone] ext [phone] documented in this encounter Plan of Treatment Not on file documented as of this encounter Visit Diagnoses Not on filedocumented in this encounter Additional Health Concerns Assessment Noted Time PHQ-9 Depression Total Score: 0 10/09/19 23 1:18 PM EDT documented as of this encounter Care Teams Snorkelling Instructor Relationship Specialty Start Date End Date Lizeth Weinstein MD [address] [place] [phone] PCP - General Family Medicine 11/25/22 documented as of this encounter
[2025-02-08 12:13] LABS: Microalbum/Creatinine Ratio Ur 3.6 ug/mg cr (<30)
[2025-02-08 12:21] LABS: Alanine Aminotransferase 27 U/L (0-40); Albumin Level 4.5 g/dL (3.5-5.0); Alkaline Phosphatase 54 U/L (39-117); Anion Gap 14 (12-20); Aspartate Amino Transferase 28 U/L (5-37); Blood Urea Nitrogen 16 mg/dL (9-16); Calcium 9.8 mg/dL (8.4-10.2); Carbon Dioxide 24 mmol/L (22-29); Chloride 106 mmol/L (96-108); Cholesterol 119 mg/dL (<200); Estimated Glomerular Filt Rate > 60; HDL Cholesterol 39 mg/dL (>40); Potassium 4.0 mmol/L (3.3-5.1); Sodium 140 mmol/L (135-145); Total Protein 8.0 g/dL (6.5-8.0); Triglycerides 117 mg/dL (<150)
[2025-02-08 12:29] LABS: Folate 7.1 ng/mL (> or = 4.0); Vitamin B12 324 pg/mL (200-900)
[2025-02-08 13:59] LABS: Reflex LDLD? No
== END 2025-02-08 08:04 | disposition home or self-care (01) ==
LOC: HO.HHCL 08:03
PROVIDERS: PCP Family Medicine; Visit Provider Family Medicine
DX: E11.9 Type 2 diabetes mellitus without complications (principal); I10 Essential (primary) hypertension; E78.00 Pure hypercholesterolemia, unspecified
CPT/HCPCS: 36415; 80053; 80061; 82043; 82570; 82607; 82746; 83036; 84443